=== PATIENT | female | born 1985 | race Caucasian/White ===

== ENCOUNTER 2017-08-17 19:49 | Emergency (ER) | payer OTHER ==
--- NOTE | 2017-08-17 20:33 | UC ---
Skin Complaint HPI - HPI Summary HPI Summary: 32 YEAR OLD FEMALE PRESENTS WITH INSECT BITE ON HER RIGHT BREAST. 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 Hx Last Menstrual Period: 09/09/14 Onset/Duration: Sudden Onset Onset Severity: Moderate Current Severity: Moderate Pain Scale Used: 0-10 Numeric - 4 - Allergy/Home Medications Allergies/Adverse Reactions: Allergies Allergy/AdvReac Type Severity Reaction Status Date / Time ENVIRONMENTAL/SEASONAL Allergy WATERY EYES Uncoded 08/17/17 20:36 HAYFEVER Home Medications: Home Medications Baclofen TAB* [Lioresal TAB*] 10 mg PO TID PRN 08/17/17 [History Confirmed 08/17] Omeprazole CAP* [Prilosec CAP* 20 MG] 40 mg PO DAILY 08/17/17 [History Confirmed 08/17/17] cloNIDine TAB* [Catapres 0.1 MG TAB*] 0.5 mg PO BID 08/17/17 [History Confirmed 08/17/17] Review of Systems Constitutional: Negative Skin: Other - INSECT BITE ON RIGHT BREAST Eyes: Negative ENT: Negative Respiratory: Negative Cardiovascular: Negative Gastrointestinal: Negative Genitourinary: Negative Motor: Negative Neurovascular: Negative Musculoskeletal: Negative Neurological: Negative Psychological: Negative All Other Systems Reviewed And Are Negative: Yes PMH/Surg Hx/FS Hx/Imm Hx - Surgical History Surgical History: Yes Surgery Procedure, Year, and Place: 1998, 1999, 2013 LEFT KNEE SURGERY X 3, [facility]. 2012 RIGHT EYE SURGERY FOR FRACTURED ORBITAL BONE, [facility] - Social History Alcohol Use: None Substance Use Type: None Smoking Status (MU): Heavy Every Day Tobacco Smoker Type: Cigarettes Amount Used/How Often: 1/2 PPD Length of Time of Smoking/Using Tobacco: 12 YEARS Have You Smoked in the Last Year: Yes Physical Exam Triage Information Reviewed: Yes Vital Signs Reviewed: Yes Eye Exam: Normal ENT Exam: Normal Dental Exam: Normal Neck exam: Normal Neck: Positive: 1 Respiratory Exam: Normal Cardiovascular Exam: Normal Abdominal Exam: Normal Musculoskeletal Exam: Normal Neurological Exam: Normal Psychological Exam: Normal Skin: Positive: Other - INSECT BITE RIGHT BREAST Course/Dx - Diagnoses Provider Diagnoses: INSECT BITE RIGHT BREAST Discharge - Discharge Plan Condition: Stable Disposition: HOME Prescriptions: Cephalexin CAP* [Keflex CAP*] 500 mg PO TID #30 cap Mupirocin 2% OINT* [Bactroban 2 % Oint*] 1 applic TOPICAL BID #1 tube Patient Education Materials: Abscess (ED) Referrals: ADAM Krishnamurthy [Primary Care Provider] - Adryan Sandoval PA-C [Physician [facility]] -
[2017-08-17 20:35] VITALS: BP 117/64
== END 2017-08-17 20:47 | disposition home or self-care (01) ==
LOC: UCCORT 19:49
DX: S20.161A Insect bite (nonvenomous) of breast, right breast, initial encounter (principal); W57.XXXA Bitten or stung by nonvenomous insect and other nonvenomous arthropods, initial encounter; Y93.9 Activity, unspecified; Y92.9 Unspecified place or not applicable; F17.210 Nicotine dependence, cigarettes, uncomplicated
CPT/HCPCS: 99212; G0463

== ENCOUNTER 2017-10-06 17:56 | Emergency (ER) | payer OTHER ==
[2017-10-06 18:53] VITALS: BP 120/63
--- NOTE | 2017-10-06 19:08 | UC ---
Ear Complaint HPI - HPI Summary HPI Summary: pt c/o right ear pain, sinus congestion and pain; generalized malaise. Pt is 4 months post , had gall bladder 1 week ago. - History of Current Complaint Chief Complaint: UCEar Stated Complaint: EAR PAIN,CHILLS Time Seen by Provider: 10/06/17 18:45 Hx Obtained From: Patient Hx Last Menstrual Period: unknown, depo ?: No Onset/Duration: Sudden Onset, Lasting Days, Still Present Severity Initially: Mild Severity Currently: Mild Associated Signs/Symptoms: Positive: URI Symptoms - Allergies/Home Medications Allergies/Adverse Reactions: Allergies Allergy/AdvReac Type Severity Reaction Status Date / Time Adhesive Tape Allergy Rash Verified 10/06/17 18:53 ENVIRONMENTAL/SEASONAL Allergy WATERY EYES Uncoded 08/17/17 20:36 HAYFEVER Home Medications: Home Medications Docosahexaenoic Acid [ Dha] 200 mg PO DAILY 10/06/17 [History Confirmed 10/06/17] Loratadine [Claritin 10 MG CAP] 10 mg PO DAILY 10/06/17 [History Confirmed 10/06] PMH/Surg Hx/FS Hx/Imm Hx Previously Healthy: Yes GI/ History: Gall Bladder Disease - Surgical History Surgical History: Yes Surgery Procedure, Year, and Place: 1998, 1999, 2013 LEFT KNEE SURGERY X 3, [facility]. 2011 RIGHT EYE SURGERY FOR FRACTURED ORBITAL BONE, [facility]. Gall Bladder removal 10/09 - Family History Known Family History: Positive: Cardiac Disease - Social History Occupation: Employed Full-time Lives: With Family Alcohol Use: None Substance Use Type: None Smoking Status (MU): Heavy Every Day Tobacco Smoker Type: Cigarettes Amount Used/How Often: 1/2 PPD Length of Time of Smoking/Using Tobacco: 12 YEARS Have You Smoked in the Last Year: Yes - Immunization History Most Recent Influenza Vaccination: 07/2017 Vaccination Up to Date: Yes Review of Systems Constitutional: Fatigue Skin: Negative Eyes: Negative ENT: Ear Ache, Sinus Congestion, Sinus Pain/Tenderness Respiratory: Cough Cardiovascular: Negative Gastrointestinal: Negative Genitourinary: Negative Motor: Negative Neurovascular: Negative Musculoskeletal: Negative Neurological: Negative Psychological: Negative Is Patient Immunocompromised?: No All Other Systems Reviewed And Are Negative: Yes Physical Exam Triage Information Reviewed: Yes Appearance: Ill-Appearing Vital Signs: Initial Vital Signs Temp 97.7 F 10/06/17 18:49 Pulse 72 10/06/17 18:49 Resp 16 10/06/17 18:49 BP 120/63 10/06/17 18:49 Pulse Ox 100 10/06/17 18:49 Vital Signs Reviewed: Yes Eye Exam: Normal ENT Exam: Other ENT: Positive: Nasal congestion, Sinus tenderness Dental Exam: Normal Neck exam: Normal Respiratory Exam: Normal Cardiovascular Exam: Normal Abdominal Exam: Normal Musculoskeletal Exam: Normal Neurological Exam: Normal Psychological Exam: Normal Skin Exam: Normal Ear Complaint Course/Dx - Differential Dx/Diagnosis Differential Diagnosis/HQI/PQRI: Otitis Media, URI Provider Diagnoses: sinusitis Discharge - Discharge Plan Condition: Stable Disposition: HOME Prescriptions: Amoxicillin PO (*) [Amoxicillin 875 MG (*)] 875 mg PO BID #20 tab Patient Education Materials: Sinusitis (ED), Earache (ED) Referrals: ADAM Krishnamurthy [Primary Care Provider] - If Needed
== END 2017-10-06 19:17 | disposition home or self-care (01) ==
LOC: UCCORT 17:56
DX: J32.9 Chronic sinusitis, unspecified (principal); H92.01 Otalgia, right ear; R53.81 Other malaise; Z90.49 Acquired absence of other specified parts of digestive tract; F17.210 Nicotine dependence, cigarettes, uncomplicated
CPT/HCPCS: 99212; G0463

== ENCOUNTER 2018-03-30 15:24 | Emergency (ER) | payer OTHER ==
--- NOTE | 2018-03-30 15:34 | UC ---
Lower Extremity/Ankle HPI - HPI Summary HPI Summary: 33 yo female presents with left ankle pain s/p injury yesterday. She tells me that she was walking downtown and texting at the same time. Did not notice an uneven part in the sidewalk and inverted her left ankle. Linn a loud pop. Had immediate pain followed by swelling. She underwent ORIF on this ankle 2 years ago for a similar injury. Denies numbness or tingling. - History of Current Complaint Stated Complaint: LFT ANKLE INJURY Time Seen by Provider: 03/30/18 15:34 Hx Obtained From: Patient Hx Last Menstrual Period: unknown, depo Onset/Duration: Sudden Onset Severity Initially: Severe Severity Currently: Severe Pain Intensity: 10 Pain Scale Used: 0-10 Numeric Aggravating Factor(s): Standing, Ambulation Alleviating Factor(s): Rest Able to Bear Weight: Yes - Allergies/Home Medications Allergies/Adverse Reactions: Allergies Allergy/AdvReac Type Severity Reaction Status Date / Time Adhesive Tape Allergy Rash Verified 10/06/17 18:53 ENVIRONMENTAL/SEASONAL Allergy WATERY EYES Uncoded 08/17/17 20:36 HAYFEVER Home Medications: Home Medications Acetaminophen [Tylenol Extra Strength] 1,000 mg PO DAILY 03/30/18 [History Confirmed 03/30/18] Baclofen TAB* [Lioresal TAB*] 20 mg PO TID 03/30/18 [History Confirmed 03/30/18 ] Gabapentin CAP(*) [Neurontin 400 mg CAP(*)] 800 mg PO BID 03/30/18 [History Confirmed 03/30/18] QUEtiapine TAB* [Seroquel 100 MG *] 50 mg PO DAILY 03/30/18 [History Confirmed 03/30/18] Quetiapine Fumarate [Seroquel 200 MG] 200 mg PO BEDTIME 03/30/18 [History Confirmed 03/30/18] hydrOXYzine HCL TAB* [Atarax 10 MG TAB*] 10 mg PO BEDTIME 03/30/18 [History Confirmed 03/30/18] PMH/Surg Hx/FS Hx/Imm Hx Cardiovascular History: Hypertension Respiratory History: COPD, Asthma GI/ History: Gastroesophageal Reflux - Surgical History Surgical History: Yes Surgery Procedure, Year, and Place: 1998, 1999, 2013 LEFT KNEE SURGERY X 3, [facility]. 2011 RIGHT EYE SURGERY FOR FRACTURED ORBITAL BONE, [facility]. Gall Bladder removal 10/09,ankle - Family History Known Family History: Positive: Cardiac Disease - Social History Lives: With Family Alcohol Use: None Substance Use Type: None Smoking Status (MU): Heavy Every Day Tobacco Smoker Type: Cigarettes Amount Used/How Often: 1/2 PPD Length of Time of Smoking/Using Tobacco: 12 YEARS Have You Smoked in the Last Year: Yes - Immunization History Most Recent Influenza Vaccination: 07/2017 Vaccination Up to Date: Yes Review of Systems Constitutional: Negative Skin: Negative Respiratory: Negative Cardiovascular: Negative Neurovascular: Negative Musculoskeletal: Edema - Left ankle, Other: - Left ankle pain Neurological: Negative Psychological: Negative All Other Systems Reviewed And Are Negative: Yes Physical Exam - Summary Physical Exam Summary: GENERAL: NAD. WDWN. No pain distress. SKIN: No rashes, sores, lesions, or open wounds. NECK: Supple. Nontender. No lymphadenopathy. CHEST: No accessory muscle use. Breathing comfortably and in no distress. CV: RRR. Without m/r/g. Pulses intact PT and DP. Brisk cap refill. MSK: Left ankle: Severe TTP about anterolateral malleolus. Moderate to severe edema about lateral malleolus. Limited ROM due to pain, but able to dorsiflex and plantarflex. NEURO: Alert. Sensations intact and symmetric B/L LEs PSYCH: Age appropriate behavior. Triage Information Reviewed: Yes Lower Extremity Course/Dx - Course Course Of Treatment: Ankle XR: IMPRESSION: Negative for fracture. Consider potential lateral supporting ligament injury given magnitude of soft tissue swelling and talocrural joint effusion. Gel ankle spint and CARTER wrap. She refused crutches. She is also asking for percocet for the pain as she has taken this in the past with good relief. Reference #: [id number] istop ok. - Differential Dx/Diagnosis Provider Diagnoses: Left ankle sprain Discharge - Sign-Out/Discharge Documenting (check all that apply): Discharge/Admit/Transfer - Discharge Plan Condition: Stable Disposition: HOME Prescriptions: oxyCODONE/Acetamin 5/325 MG* [Percocet 5/325 TAB*] 1 tab PO Q8H PRN #9 tab MDD 3 PRN Reason: Pain Patient Education Materials: Ankle Sprain (ED) Referrals: ADAM Krishnamurthy [Primary Care Provider] - Richard Roberts MD [Medical Doctor] - As Soon As Possible Additional Instructions: If you develop a fever, shortness of breath, chest pain, new or worsening symptoms - please call your PCP or go to the ED. 1) Rest, Ice, and Elevate your ankle as much as possible 2) Use the CARTER wrap and gel splint for added support and stability 3) Please call Dr. Roberts at the number below to schedule a follow up appointment - he is the surgeon that did your previous ankle surgery - Billing Disposition and Condition Condition: STABLE Disposition: HOME
--- OUTSIDE RECORDS SUMMARY | 2018-03-30 15:34 | XMS REPORT ---
:1985 External Reference #:[id number] Author Organization [facility] Address [address] [address] Phone [phone] Care Team Providers Name Role Phone Jhoana Amato MD Primary Care Physician Unavailable Payers Type Date Identification Numbers Payment Provider Subscriber Commercial Effective: Policy Number: [id number] Andrew Hussein Perez 2009 Group Number: [id number] [address] PayID: [id number] [place] [address] Problems Description No Information Family History Date Family Member(s) Problem(s) Comments General Heart Disease General Diabetes Social History Type Date Description Comments Lives With assisted house Occupation Unemployed ETOH Use Denies alcohol use Smoking Heavy tobacco smoker (more than 10 cigarettes/day) Allergies, Adverse Reactions, Alerts Date Description Reaction Status Severity Comments 12/04/2015 NKDA active Medications Medication Date Status Form Strength Qnty SIG Indications Ordering Provider Proair HFA / Active Aerosol 108(90Bas Olarewaju 0000 e) , mcg/Act MD Veena Trazodone HCL / Active Tablets 300mg 1 po at Olarewaju 0000 hs Veena MD Loratadine / Active Tablets 10mg 30tab 1 by Olarewaju 0000 s mouth , every day MD Veena Gabapentin / Active Tablets 600mg 1 po tid Olarewaju 0000 Veena MD Advair Diskus / Active Aerosol 100-50mcg 60uni as Olarewaju 0000 /Dose ts directed Veena MD Seroquel / Active Tablets 250mg 1 by Unknown 0000 mouth every night at bedtime Omeprazole / Active Capsules DR 40mg 1 by Unknown 0000 mouth every day Tylenol Extra / Active Tablets 500mg 2 by Unknown Strength 0000 mouth as needed Cyclobenzaprine / Active Tablets 10mg 1 tablet Unknown HCL 0000 by mouth q8 hours as needed muscle spasms Oxycodone-Acetami 01/08/ Hx Tablets 5-325mg 30tab S93.402D Stashelley bee 2015 Terrence Preet, 02/21/ 2015 Oxycodone HCL 01/08/ Hx Tablets 5mg 40tab take one G57.92 Richard 2015 four Armando, 02/21/ times a M.D. 2015 day as needed Colace 01/01/ Hx Capsules 100mg 30cap take 1 Richard 2015 capsule Armando, 03/09/ by mouth M.D. 2017 two times daily as needed - maximum daily dose of 2 per day Sumatriptan / Hx Tablets 100mg Olarewaju Succinate 0000 - , , 2017 Tab-A-Chase / Hx Tablets Olarewaju 0000 - , , 2017 Topiramate / Hx Tablets 25mg Olarewaju 0000 - , , 2017 Oxycodone-Acetami / Hx Tablets 5-325mg Olareolga lidia nophen 0000 - , , 2015 Fluticasone / Hx Suspension 50mcg/Act Olarewaju Propionate 0000 - , , 2017 Vital Signs Date Vital Result Comment 03/22/2018 Height 65 inches 5'5" Weight 210.00 lb Heart Rate 87 /min BP Systolic Sitting 126 mmHg BP Diastolic Sitting 68 mmHg Respiratory Rate 16 /min Pain Level 8 tylenol O2 % BldC Oximetry 98 % Ra BMI (Body Mass Index) 34.9 kg/m2 02/26/2016 Weight 205.00 lb Heart Rate 78 /min BP Systolic Sitting 124 mmHg BP Diastolic Sitting 82 mmHg 01/08/2016 Weight 205.00 lb Heart Rate 80 /min BP Systolic Sitting 128 mmHg BP Diastolic Sitting 88 mmHg 12/18/2015 Heart Rate 80 /min BP Systolic Sitting 98 mmHg BP Diastolic Sitting 68 mmHg 12/04/2015 Height 65 inches 5'5" Weight 205.00 lb Heart Rate 68 /min BP Systolic Sitting 110 mmHg BP Diastolic Sitting 70 mmHg BMI (Body Mass Index) 34.1 kg/m2 Results Test Date Test Result H/L Range Note Laboratory test 12/31/2015 Surgical Pathology SEE RESULT BELOW 1 finding Laboratory test 12/31/2015 (HCG) Negative Negative 2 finding Urine Laboratory test 12/30/2015 Semiten SEE RESULTS BELO 3, 4 finding <SEE NOTE> 1 SEE RESULT BELOW Name: HUSSEIN PEREZ : [address]: Richard Roberts MD Acct: [id number] Unit: [id number] AGE: 30 Location: OR Re12/31/15 SEX: F Status: REG [place] SPEC: [id number] JEFF: 12/31/15123 [facility] DR: Richard Roberts MD REQ: [id number] RECD: 12/31/15 STATUS: SOUT _ ORDERED: LEVEL III FINAL DIAGNOSIS Left talus cartilage, excision: -- Benign cartilaginous tissue. PRE-OPERATIVE DIAGNOSIS Sprain of unspecified ligament of left ankle. GROSS DESCRIPTION The specimen is received in formalin labeled, Left Talus Cartilage, and consists of two oconnor-white irregular rubbery soft tissue fragments measuring 0.8 x 0.5 x 0.2 cm and 1.0 cm by up to 0.6 x 0.2 cm. The specimen is serially sectioned and entirely submitted in one cassette. Signed (signature on file) Rachel Zuleta MD 08/08 1243 END OF REPORT * ML=Testing performed at Main Lab DEPARTMENT OF PATHOLOGY, [address] [place] [address] Tutu Stratton M.D. Director [facility] # [id number] 2 If is still suspected, please repeat test after 48 to 72 hours. This test detects intact HCG only and is indicated for the early detection of . 3 SPRAIN OF UNSPEFICIED LIGAMENT OF LEFT ANKLE, INIT 4 SEE RESULTS BELOW [id number] SEMITEN TRANSFUSED 12/31/15 1040 Procedures Date CPT Code Description Status 01/08/2016 80754 Short Leg Cast Completed 12/31/2015 38027 Decompress Nerve Unspec Completed 12/31/2015 52115 Partial Excision Bone Talus/Calcaneus Completed 12/31/2015 93233 Repair Collateral Ligament Ankle, Secondary Completed Encounters Type Date Location Provider CPT E/M Dx Office Visit 03/22/2018 [facility] [place] Mel[place] [address] M19.011 9:15a [facility] Office Visit 12/18/2015 [facility] Richard Roberts 60836 S93.402D 10:40a [facility] [place] Office Visit 12/04/2015 [facility] Richard Roberts 35870 S93.402A 10:00a [facility] 02/06/2010 2:20p [facility] Storm Harman, [address] [address] [facility] 03/22/2018 - ALESIA Guan19.011 Primary osteoarthritis, right shoulderNew Xrays:MRI Shoulder Right W/OFollow up:Follow up: yaseen for distal clavicle resection surgery after mri
[2018-03-30 15:36] VITALS: BP 118/70
--- NOTE | 2018-03-30 16:12 | RAD ---
Indication: LEFT ankle pain following injury March 29, 2018. Lateral pain and soft tissue swelling. Comparison: No relevant prior exams available on the [facility] PACS for comparison. Technique: AP, mortise, and lateral views LEFT ankle. Report: Significant soft tissue swelling over the lateral malleolus. Talocrural joint effusion. Negative for gross component failure or evidence for loosening with regard to the cortical plate and fixation screws at the lateral malleolus. No conspicuous acute or chronic fracture evident. Normal articular alignment. IMPRESSION: Negative for fracture. Consider potential lateral supporting ligament injury given magnitude of soft tissue swelling and talocrural joint effusion.
== END 2018-03-30 16:31 | disposition home or self-care (01) ==
LOC: UCCORT 15:24
DX: S93.402A Sprain of unspecified ligament of left ankle, initial encounter (principal); W18.49XA Other slipping, tripping and stumbling without falling, initial encounter; Y93.01 Activity, walking, marching and hiking; Y92.480 Sidewalk as the place of occurrence of the external cause; F17.210 Nicotine dependence, cigarettes, uncomplicated; Z87.81 Personal history of (healed) traumatic fracture; Z96.7 Presence of other bone and tendon implants
CPT/HCPCS: 99213; G0463

== ENCOUNTER 2018-05-03 10:47 | Day surgery (SDC) | payer OTHER ==
--- NOTE | 2018-04-20 08:49 | HP ---
HISTORY AND PHYSICAL: DATE OF SURGERY: 05/03/18 DATE OF OFFICE VISIT: 04/08/18 ATTENDING SURGEON: Sondra Borden MD.* (DICTATED BY WALE MEDINA) PROCEDURE: Right shoulder arthroscopic excision distal clavicle, decompression , and debridement. CHIEF COMPLAINT: Right shoulder. HISTORY OF PRESENT ILLNESS: Brianna is a 33-year-old female who presents to clinic for right shoulder pain. She is right hand dominant. She is disabled, but has a 10-month old baby. She has had shoulder pain for years, over the last seven to eight months, she describes an anterolateral ache that is constant. She rates it as 8/10. It radiates into the neck. She has pain reaching across her body and with behind the back and above the head motion. She has had trigger point injections and physical therapy, which have not helped. She has not had a cortisone injection. She is not interested in cortisone injection. She takes gabapentin, baclofen for pain. She has never had surgery. She is in a boot and saw Dr. Roberts because she sprained her ankle about 2 weeks ago. She smokes 1 pack per day. She is not diabetic. She denies numbness, tingling, fevers, chills, chest pain or shortness of breath otherwise. PAST MEDICAL HISTORY: 1. Asthma. 2. Anxiety. 3. Depression. 4. Headache. 5. Head trauma. 6. Bipolar. 7. PTSD. 8. Borderline personality disorder. 9. ADHD. 10. Herniated lumbar disk. PAST SURGICAL HISTORY: 1. Left knee x3. 2. Eye surgery. 3. Left ankle surgery. 4. Cholecystectomy. The patient denies prior complications with anesthesia. MEDICATIONS: 1. [place] 5/325 one by mouth every 6 hours as needed for pain. 2. ProAir HFA 100/90 mcg/ACT as needed. 3. Trazodone 300 mg 1 by mouth at night. 4. Loratadine 10 mg 1 by mouth daily. 5. Gabapentin 800 mg 1 by mouth 3 times a day. 6. Advair Diskus 100/50 mcg per dose as directed. 7. Seroquel 250 mg 1 by mouth every night at bedtime. 8. Omeprazole 40 mg 1 by mouth every day. 9. Tylenol extra strength 500 mg 2 tabs by mouth as needed. 10. Cyclobenzaprine 10 mg 1 every 8 hours as needed for muscle spasms. 11. Baclofen 10 mg 1 tab 3 times a day. 12. Duloxetine 30 mg 1 by mouth twice a day. ALLERGIES: No known drug allergies. FAMILY HISTORY: Positive for heart disease, diabetes, osteoarthritis, mental health disorders and MIs. The patient denies family history of DVT or PE. SOCIAL HISTORY: She is unemployed. She smokes 1 pack per day. She denies alcohol use. She is right hand dominant. REVIEW OF SYSTEMS: A 14-point review of systems was reviewed with patient. Positive for current complaint. Otherwise negative. Denies numbness, tingling , fever, chills, chest pain, shortness of breath. Denies history of DVT or PE. Denies history of MRSA. PHYSICAL EXAMINATION GENERAL: A 33-year-old, well-developed, well-nourished female in no acute distress. Alert and oriented x3. Appropriate mood and affect. Appropriate balance and coordination of the upper extremities. VITAL SIGNS: Height 65, weight 213, pulse 84, blood pressure 98/66, respiratory rate 16, temperature 96.9, BMI 35.4. HEENT: Normocephalic, atraumatic, PERRLA. Throat clear. NECK: Supple. PULMONARY: Clear to auscultation bilaterally. No wheezing, rhonchi, or rales. CARDIO: Regular rate and rhythm, S1, S2. No murmurs, gallops, or rubs. No edema. ABDOMEN: Positive bowel sounds, soft, nontender. MUSCULOSKELETAL: Right upper extremity: Skin is intact. No warmth or erythema , tenderness to palpation of the AC joint in the proximal biceps tendon. Forward flexion to 120, passively to 140 with pain. Abduction to 90. External rotation to 65, internal rotation to lumbar spine. She has pain with cross body. +4/5 strength to rotator cuff testing with pain, +2 radial pulse. Positive Neil's, Speed's, Marie-Eduardo, Somerset's. +2 radial pulse. Sensation intact to light touch distally. Left upper extremity: Skin is intact. No warmth or erythema. Nontender to palpation. Full pain free range of motion. Neurovascularly intact. STUDIES: X-rays and MRI of the right shoulder reveals severe AC joint arthritis, supraspinatus tendinosis with subacromial impingement. The rotator cuff is intact. There is no fluid in the bicipital groove. Impression: Right shoulder impingement, AC joint arthritis and biceps tendonitis. ASSESSMENT AND PLAN: Brianna is a 33-year-old female who presents to clinic for right shoulder pain for several years due to acromioclavicular joint arthritis, biceps tendonitis and impingement. Conservative treatment versus surgical treatment were discussed with the patient. She has failed physical therapy, is not interested in injection. She would like to undergo surgical treatment. Risk of surgery to include injury to blood vessels, nerve, surrounding structures, bleeding, infection, risk of anesthesia, stiffness, persistent pain , and risk of DVT and PE were discussed with the patient. She would still like to undergo surgery. She was given a script for Tramadol for pain to get her through until she is able to have surgery. She will require PCP clearance but she is scheduled to undergo a right total arthroscopic excision, distal clavicle decompression and debridement and possible biceps tenotomy with Dr. Borden on 05/03/18. She will followup 10 to 14 days postop. Oxycodone will be used for postop pain management. WALE MEDINA [id number]/[facility] #: [id number] MTDAmanda
[~2018-05-03 10:47] MED LIST: Buffered Lidocaine 0.9% SYRIN* 5 ML/SYR SYRINGE INTRADERM ONE; Famotidine IV* 10 MG/ML 2 ML (20 mg) IV ONE
[2018-05-03] MEDS ORDERED: ceFAZolin 2 GM PREMIX (*) 2 GM/50 ML BAG IVPB ONE (11:06)
[2018-05-03] MEDS ORDERED: Famotidine IV* 10 MG/ML 2 ML (20 mg) ONE (11:06)
[2018-05-03] MEDS ORDERED: fentaNYL* 50 MCG/ML 2 ML VIAL (100 MCG VIAL) ONE ×2 (11:10→12:40)
[2018-05-03] MEDS ORDERED: Midazolam* 1 MG/ML 5 ML VIAL (5 MG) ONE (11:10)
[2018-05-03] MEDS ORDERED: HYDROmorphone INJ* 1 MG/ML CARPUJECT SYRINGE IV PRN (11:37)
[2018-05-03] MEDS ORDERED: Ondansetron INJ* 2 MG/ML VIAL IV PRN (11:37)
[2018-05-03] MEDS ORDERED: oxyCODONE/Acetamin 5/325 MG* TAB PO PRN (11:37)
[2018-05-03] MEDS ORDERED: Naloxone* 0.4 MG/ML 1 ML VIAL IV PRN (11:37)
[2018-05-03] MEDS ORDERED: ROPIVACAINE 5 MG/ML 30 ML BTL (0.5%) ONE (12:08)
[2018-05-03] MEDS ORDERED: Lidocaine 2% PF* 10 ML AMP ONE (12:09)
[2018-05-03] MEDS ORDERED: KETAMINE HCL* 50 MG/ML 10 ML VIAL ONE (12:37)
[2018-05-03] MEDS ORDERED: Dexamethasone IV* 4 MG/ML 1 ML (4 MG) ONE (12:52)
[2018-05-03] MEDS ORDERED: Propofol* 10 MG/ML 20 ML BTL IV PUSH ONE (12:52)
[2018-05-03] MEDS ORDERED: Lidocaine 2% MPF* 2 ML VIAL ONE (12:52)
[2018-05-03] MEDS ORDERED: Ketorolac INJ* 30 MG/ML 1 ML VIAL ONE (12:52)
[2018-05-03] MEDS ORDERED: DiMENhydriNATE IV* 50 MG/ML VIAL ONE (12:52)
[2018-05-03] MEDS ORDERED: methylPREDNISolone ACETATE 80* 80 MG/ML 1 ML VIAL ONE (13:00)
[2018-05-03 14:12] VITALS: BP 110/78
--- NOTE | 2018-05-04 07:50 | OP ---
DATE OF OPERATION: 05/03/18 [facility] DATE OF : 81 SURGEON: Sondra Borden MD CAUSTIC STRENGTH INSPECTOR: WALE Ruvalcaba. An front desk assistant was needed for the entirety of the case to help with positioning and retraction, and was utilized throughout all portions of the case. ANESTHESIOLOGIST: Dr. Calvillo ANESTHESIA: General, interscalene block. PRE-OP DIAGNOSES: Right shoulder impingement with acromioclavicular joint arthritis and a SLAP tear. POST-OP DIAGNOSES: Right shoulder SLAP type 2 tear, partial thickness articular - sided tearing of the supraspinatus tendon with unstable flaps, subacromial impingement with a downward sloping acromion, and acromioclavicular joint arthritis. OPERATIVE PROCEDURE: 1. Right shoulder arthroscopy with extensive glenohumeral debridement, debridement of the supraspinatus tendon, biceps tenotomy, and debridement of the anterior, posterior, and superior labrum. 2. Subacromial decompression with acromioplasty. 3. Distal clavicle excision arthroscopic. 4. Subacromial injection 80 mg Depo-Medrol. COMPLICATIONS: None. ESTIMATED BLOOD LOSS: Minimal. INDICATION: Brianna Dsouza is a 33-year-old female who presents with right shoulder pain about the AC joint and bicipital groove with impingement. Risks and benefits of surgery were discussed at length and included but are not limited to bleeding, infection; damage to nerves, vessels, surrounding structures; wound nonhealing, persistent pain, need for further surgery, scaring , stiffness, incomplete relief of symptoms, risk of anesthesia. She has failed conservative treatment and elected to proceed with surgical treatment. Risks and benefits of surgery were discussed as above. DESCRIPTION OF PROCEDURE: The patient was greeted in the preoperative area by the attending surgeon. The correct extremity was marked and consent was confirmed. The patient then underwent interscalene nerve block by the anesthesiologist, after which she was brought back to the operating suite. She was placed in supine position on the operating table. She then underwent general anesthesia with endotracheal intubation. She was properly positioned in the left lateral decubitus position where all bony prominences were padded. She was secured with a pegboard and axillary roll was placed. The right shoulder was then prepped and draped in the usual sterile fashion beginning with chlorhexidine soap, scrub, and alcohol wipe and a final prep with ChloraPrep. After appropriate surgical pause indicating side, site, procedure, and administration of antibiotics, the standard postero-lateral portal was made sharply with #11 blade. The scope was introduced into the joint, joint was examined. There were grade 0 to 1 changes in the glenohumeral joint. The anterior, posterior, and superior labrum had an unstable type 2 SLAP tear. The undersurface of the supraspinatus tendon had partial thickness tearing on the undersurface flaps. The inferior recess was intact. An anterior portal was made in an outside- in fashion. Shaver was used to debride back the anterior, posterior, and superior labrum as well as the undersurface of the supraspinatus. There was some mild fraying of the subscapularis and biceps valentín as well. The biceps was then tenotomized, the inferior recess was intact. Once the intraarticular portion was completed, attention was directed to the subacromial space. The scope was repositioned in the subacromial space. Lateral portal was made in an outside-in fashion. Shaver was used to debride back the abundant bursa that was present. There was a large downward-sloping in acromion, which was evident and skeletonized using electrocautery device. The 4-0 oval candace was then used to do an acromioplasty. There is also a large spur about the AC joint. Once this was removed from the acromion, the AC joint was identified. All fluid and debris were removed from the acromioplasty. The candace was positioned anteriorly and approximately 8-mm distal clavicle was removed under direct arthroscopic visualization. The clavicle was then mobilized to make sure that the areas of impingement have been removed. Final images were obtained. The wounds were copiously irrigated with sterile saline and all loose debris was removed. An 18-gauge needle was placed under arthroscopic visualization. The wounds were then copiously irrigated with sterile saline. The portals were closed with 3-0 nylon. The subacromial space was injected with 80 mg Depo-Medrol. Sterile dressings were applied; a Cryo/ Cuff and a regular sling were applied. She was awoken from anesthesia and returned to PACU in stable condition. POSTOPERATIVE PLAN: She will be nonweightbearing with range of motion as tolerated. DVT prophylaxis was considered, but deferred due to no previous or family history. I will see the patient back in 10 to 14 days. [id number]/[facility] #: [id number] [facility]
== END 2018-05-03 14:13 | disposition home or self-care (01) ==
LOC: OREAST 10:47
PROVIDERS: ATTEND Orthopaedic Surgery
DX: M75.41 Impingement syndrome of right shoulder (principal); M19.011 Primary osteoarthritis, right shoulder; M24.211 Disorder of ligament, right shoulder; M75.101 Unspecified rotator cuff tear or rupture of right shoulder, not specified as traumatic; G89.18 Other acute postprocedural pain; J45.909 Unspecified asthma, uncomplicated; F41.8 Other specified anxiety disorders; F31.9 Bipolar disorder, unspecified; F43.10 Post-traumatic stress disorder, unspecified; F90.9 Attention-deficit hyperactivity disorder, unspecified type; F60.3 Borderline personality disorder; Z72.0 Tobacco use; Z79.899 Other long term (current) drug therapy
CPT/HCPCS: 81025; J0690; J1040; J1100; J1240; J1885; J2001; J2250; J2704; J2795; J3010

== ENCOUNTER 2018-07-15 12:37 | Emergency (ER) | payer OTHER ==
[2018-07-15 12:55] VITALS: BP 109/72
--- NOTE | 2018-07-15 13:34 | UC ---
Eye Complaint HPI - HPI Summary HPI Summary: 33 year old female with eye concern. THURSDAY MORNING FELL INTO CEMENT BLOCK, HAS SOME BRUISING AND SWELLING AROUND RIGHT ORBITAL, HAS HAD A RIGHT ORBITAL RECONSTRUCTION PRIOR AND IS CONCERNED SHE MAY HAVE RE-INJURED IT States the fall was hard and she wants to ensure no acute concerns for fracture NO CHANGES IN VISION [ End ] - History of Current Complaint Chief Complaint: UCTrauma Stated Complaint: RIGHT SIDED FACIAL INJURY Time Seen by Provider: 07/15/18 12:57 Hx Obtained From: Patient Hx Last Menstrual Period: DEPO Onset/Duration: Sudden Onset Pain Intensity: 7 Location of Injury: Conjunctiva, Globe, Eye Lid (lower) - Risk Factors Globe Rupture Risk Factors: Recent Trauma Acute Glaucoma Risk Factors: Eye Trauma - Allergies/Home Medications Allergies/Adverse Reactions: Allergies Allergy/AdvReac Type Severity Reaction Status Date / Time Adhesive Tape Allergy Rash Verified 05/03/18 11:36 latex Allergy Rash Verified 05/03/18 11:36 PMH/Surg Hx/FS Hx/Imm Hx Previously Healthy: Yes Psychological History: Anxiety, Depression - Surgical History Surgical History: Yes Surgery Procedure, Year, and Place: left knee arthroscopies x3, 1998, 1999, 2013 - [facility]. right eye orbital fx repair 2011 - [facility]. cholecystectomy 2016 - [facility]. [place] [facility] [place] - Family History Known Family History: Positive: Cardiac Disease - Social History Lives: With Family Alcohol Use: reports been sober 3 yrs Substance Use Type: None Smoking Status (MU): Heavy Every Day Tobacco Smoker Type: Cigarettes Amount Used/How Often: 1/2 - 1 PPD for 18 years Length of Time of Smoking/Using Tobacco: 12 YEARS Have You Smoked in the Last Year: Yes - Immunization History Most Recent Influenza Vaccination: 07/2017 Vaccination Up to Date: Yes Review of Systems Skin: Bruising Is Patient Immunocompromised?: No All Other Systems Reviewed And Are Negative: Yes Physical Exam Triage Information Reviewed: Yes Appearance: Well-Appearing, No Pain Distress, Well-Nourished Vital Signs: Initial Vital Signs Temp 97.4 F 07/15/18 12:46 Pulse 81 07/15/18 12:46 Resp 17 07/15/18 12:46 BP 109/72 07/15/18 12:46 Pulse Ox 97 07/15/18 12:46 Vital Signs Reviewed: Yes Eye Exam: Normal Eyes: Positive: Conjunctiva Clear, Other: - right infraorbital ecchymosis and tenderness to palpation. ENT Exam: Normal ENT: Positive: Normal ENT inspection, Hearing grossly normal, TMs normal Neck exam: Normal Respiratory Exam: Normal Cardiovascular Exam: Normal Musculoskeletal Exam: Normal Neurological Exam: Normal Psychological Exam: Normal Skin: Positive: Other - bruising under right eye Eye Complaint Course/Dx - Course Course Of Treatment: CT done and reveals no acute concerns - Differential Dx/Diagnosis Provider Diagnoses: facial contusion right side of face Discharge - Sign-Out/Discharge Documenting (check all that apply): Patient Departure All imaging exams completed and their final reports reviewed: Yes - Discharge Plan Condition: Good Disposition: HOME Patient Education Materials: Facial Contusion (ED) Referrals: Brenda Powell [Primary Care Provider] - 4 Days Additional Instructions: Your CT scan was negative for a fracture. Feel better ! - Billing Disposition and Condition Condition: GOOD Disposition: Home
--- NOTE | 2018-07-15 13:54 | RAD ---
HISTORY: fall , h/o orbital fracture COMPARISONS: None TECHNIQUE: Multiple contiguous axial CT scans were obtained of the orbits without intravenous contrast, with coronal and sagittal multiplanar reformations. FINDINGS: BONES: There is no displaced fracture or dislocation. The orbital rim is intact. The zygomatic arch is intact. The pterygoid plates are intact. ORBITS: The globes are round. The optic nerves are symmetric. The extraocular musculature is normal. There is no post septal or intraconal inflammatory change. There is no retrobulbar hematoma. PARANASAL SINUSES: There is a mucous retention cyst versus polyp with mucosal thickening of the left maxillary sinus. BRAIN AND SOFT TISSUE: There is minimal premaxillary soft tissue swelling on the right. OTHER: None. IMPRESSION: NO ORBITAL FRACTURE.
== END 2018-07-15 14:06 | disposition home or self-care (01) ==
LOC: UCCORT 12:37
DX: S00.83XA Contusion of other part of head, initial encounter (principal); W19.XXXA Unspecified fall, initial encounter; Y93.9 Activity, unspecified; Y92.9 Unspecified place or not applicable; F17.210 Nicotine dependence, cigarettes, uncomplicated
CPT/HCPCS: 70480; 99211; G0463

== ENCOUNTER 2019-05-24 20:12 | Emergency (ER) | payer OTHER ==
--- OUTSIDE RECORDS SUMMARY | 2019-05-24 20:19 | XMS REPORT | Continuity of Care Document ---
:1985 External Reference #:[id number] Author Name Lonny Willingham DO, MPH Address [address] [place] [address], [address] [place] [address] Care Team Providers Name Role Phone Jhoana Amato M.D. Care Team Information Clothes Separator Unavailable Yahaira Alejo L., MD Primary Care Physician Unavailable Payers Date Identification Numbers Payment Provider Subscriber Policy Number: [id number] [facility] Brianna Dsouza PayID: [id number] [employer] Claims [employer] [address] [place] [address] Family History Date Family Member(s) Observation Comments Father due to Unknown Causes () Father 8 Mother 56 Children 3 Siblings 6 Social History Type Date Description Comments Sex Unknown Marital Status Single Lives With Male Partner Occupation Disabled Work Status Not Currently Working ETOH Use Former Alcohol Use Alcoholic Tobacco Use Start: Unknown Patient is a current smoker, smokes every day Recreational Drug Use Former Drug User Smoking Status Reviewed: 05/09/19 Patient is a current smoker, smokes every day Allergies, Adverse Reactions, Alerts Active Allergies Reaction Severity Comments Date Latex 09/16/2018 Medications Active Medications SIG Qnty Indications Ordering Provider Date Zanaflex si/2 by mouth 30tabs Lonny Willingham DO, 02/08/2019 4mg Tablets every 8-12 hours MPH Oxycodone HCL si by mouth 90tabs Lonny Willingham DO, 09/17/2018 5mg every 8 hours as MPH Tablets directed chronic pain patient Gabapentin by mouth three 90tabs Unknown 800mg times a day as Tablets directed Seroquel 2 by mouth every 120tabs Unknown 300mg day at bedtime as Tablets directed Seroquel 1 by mouth twice 30tabs Unknown 50mg Tablets a day as directed Omeprazole 1 by mouth every Unknown 40mg day Capsules DR Yarely Hoyt 1 puffs twice a Unknown day 250-50mcg/Dose Aerosol Albuterol Inhalation Unknown 90mcg/Dose Aerosol Vitamin D3 Super Unknown Strength 2000Unit Capsules Trazodone HCL 2 by mouth every 30tabs Unknown 100mg night Tablets Lakeshore Carbonate 1 by mouth twice Unknown daily 300mg Capsules History Medications Gabapentin 2 by mouth three 45caps Unknown - 11/08/2018 100mg Capsules times a day Ibuprofen as needed Unknown - 02/08/2019 800mg Tablets Propranolol HCL 1 by mouth every day Unknown - 02/08/2019 20mg Tablets as needed Baclofen by mouth four times a 60tabs Unknown - 02/08/2019 10mg Tablets day as directed Vital Signs Date Vital Result Comment 05/09/2019 10:28am BP Systolic 136 mmHg BP Diastolic 84 mmHg Heart Rate 82 /min Respiratory Rate 20 /min Height 64 inches 5'4" Weight 206.00 lb Pain Level 5 Pain at this time. Pain Level With Medicine 4 on average with meds Pain Level Without Medicine 9 without meds Pain Level After Procedure 4 BP Systolic Recheck 132 mmHg Pulse: 88 BP Diastolic Recheck 84 mmHg Pulse: 88 BMI (Body Mass Index) 35.4 kg/m2 04/05/2019 11:02am BP Systolic 128 mmHg BP Diastolic 78 mmHg Heart Rate 74 /min Respiratory Rate 20 /min Height 64 inches 5'4" Weight 206.00 lb Pain Level 4 Pain at this time. Pain Level With Medicine 3 on average with meds Pain Level Without Medicine 9 09/01 without meds BMI (Body Mass Index) 35.4 kg/m2 03/10/2019 2:51pm BP Systolic 130 mmHg BP Diastolic 84 mmHg Heart Rate 80 /min Respiratory Rate 20 /min Height 64 inches 5'4" Weight 206.00 lb Pain Level 4 Pain at this time. Pain Level With Medicine 3 on average with meds Pain Level Without Medicine 8 09/01 without meds BMI (Body Mass Index) 35.4 kg/m2 02/08/2019 2:22pm BP Systolic 148 mmHg BP Diastolic 86 mmHg Heart Rate 8 /min Respiratory Rate 20 /min Height 64 inches 5'4" Weight 203.00 lb Pain Level 8 Pain at this time. Pain Level With Medicine 7 on average with meds Pain Level Without Medicine 09/01 without meds BMI (Body Mass Index) 34.8 kg/m2 01/10/2019 3:02pm BP Systolic 122 mmHg BP Diastolic 74 mmHg Heart Rate 70 /min Respiratory Rate 20 /min Height 64 inches 5'4" Weight 203.00 lb Pain Level 5 Pain at this time. Pain Level With Medicine 4 on average with meds Pain Level Without Medicine 09/01 without meds Pain Level After Procedure 4 BP Systolic Recheck 126 mmHg Pulse: 74 BP Diastolic Recheck 78 mmHg Pulse: 74 BMI (Body Mass Index) 34.8 kg/m2 12/07/2018 2:38pm BP Systolic 130 mmHg BP Diastolic 82 mmHg Heart Rate 84 /min Respiratory Rate 20 /min Height 64 inches 5'4" Weight 203.00 lb Pain Level 6 Pain at this time. Pain Level With Medicine 5 on average with meds Pain Level Without Medicine 09/01 without meds BMI (Body Mass Index) 34.8 kg/m2 11/08/2018 2:32pm BP Systolic 144 mmHg BP Diastolic 78 mmHg Heart Rate 82 /min Respiratory Rate 20 /min Height 64 inches 5'4" Weight 203.00 lb Pain Level 6 Pain at this time. Pain Level With Medicine 5 on average with meds Pain Level Without Medicine 09/01 without meds Pain Level After Procedure 4 BP Systolic Recheck 138 mmHg Pulse: 88 BP Diastolic Recheck 82 mmHg Pulse: 88 BMI (Body Mass Index) 34.8 kg/m2 10/21/2018 3:15pm Respiratory Rate 20 /min Height 64 inches 5'4" Weight 202.00 lb Pain Level Without Medicine 10 09/01 without meds BMI (Body Mass Index) 34.7 kg/m2 09/28/2018 2:50pm BP Systolic 140 mmHg BP Diastolic 86 mmHg Heart Rate 82 /min Respiratory Rate 20 /min Height 64 inches 5'4" Weight 202.00 lb Pain Level 6 Pain at this time. Pain Level With Medicine 5 on average with meds Pain Level Without Medicine 10 09/01 without meds BMI (Body Mass Index) 34.7 kg/m2 09/16/2018 2:21pm BP Systolic 122 mmHg BP Diastolic 78 mmHg Heart Rate 74 /min Respiratory Rate 18 /min Height 64 inches 5'4" Weight 202.00 lb Pain Level 8 Pain at this time. Pain Level Without Medicine 10 09/01 without meds BMI (Body Mass Index) 34.7 kg/m2 Procedures Date Code Description Status 02/08/2019 73521 Test Autonomic Nervous System, Sudomotor Completed 02/08/2019 38003 Test Autonomic Nervous System, Cardiovagal Innervation Completed 01/10/201948699 Inject Tendon/Ligament Completed 01/10/2019 06918 Inject Tendon/Ligament Completed 01/10/2019 99546 Inject Tendon/Ligament Completed 01/10/2019 02597 Inject Tendon/Ligament Completed 01/10/201933571 Injection, Tendon Origin/Insertion Completed 01/10/201906988 Injection, Tendon Origin/Insertion Completed 01/10/201915285 Injection, Single Or Mutiple Trigger Points One Or Two Completed Muscles 01/10/2019 30851 Injection For Nerve Block, Other Peripheral Nerve Or Completed Branch 01/10/2019 83465 Brief Emotional/Behav Assessment W/ Scoring Doc Per Completed Standard Inst 01/10/2019 51428 Omt 3-4 Body Regions Completed 12/07/2018 66934 Omt 3-4 Body Regions Completed 11/08/201837003 Injection, Single Or Mutiple Trigger Points One Or Two Completed Muscles 11/08/201862892 Injection, Tendon Origin/Insertion Completed 11/08/201857299 Injection, Tendon Origin/Insertion Completed 11/08/2018 52185 Inject Tendon/Ligament Completed 11/08/2018 87613 Inject Tendon/Ligament Completed 11/08/2018 10681 Inject Tendon/Ligament Completed 11/08/2018 44435 Inject Tendon/Ligament Completed 09/16/2018 56789 Omt 1-2 Body Regions Completed Encounters Type Date Location Provider Dx Diagnosis Office Visit 04/05/2019 Main Office as Of Lonny Willingham DO G89.21 Chronic pain due 11:30a 12/24/13 MPH to trauma M54.2 Cervicalgia M54.5 Low back pain M54.17 Radiculopathy, lumbosacral region Z79.891 assisted (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 analgesic Office Visit 03/10/2019 3:00p Main Office as Lonny Willingham G89.21 Chronic pain due Of 12/24/13 DO, [facility]PH to trauma M54.2 Cervicalgia M54.5 Low back pain M54.17 Radiculopathy, lumbosacral region Z79.891 assisted (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 analgesic Office Visit 02/08/2019 2:45p Main Office as Lonny Willingham G89.21 Chronic pain due Of 12/24/13 DO, [facility] to trauma M54.2 Cervicalgia M54.5 Low back pain M54.17 Radiculopathy, lumbosacral region 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 G90.3 Multi-system degeneration of the autonomic nervous system Office Visit 01/10/2019 3:15p Main Office as Lonny Willingham G89.21 Chronic pain due Of 12/24/13 DO, MPH to trauma M54.6 Pain in thoracic spine M99.02 Segmental and somatic dysfunction of thoracic region M54.5 Low back pain M99.03 Segmental and somatic dysfunction of lumbar region M54.2 Cervicalgia M99.01 Segmental and somatic dysfunction of cervical region M54.17 Radiculopathy, lumbosacral region M65.88 Other synovitis and tenosynovitis, other site M79.18 Myalgia, other site Z13.31 Encounter for screening for depression 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 Office Visit 12/07/2018 3:00p Main Office as Lonny Willingham G89.21 Chronic pain due Of 12/24/13 DO, [facility]PH to trauma M54.2 Cervicalgia M99.01 Segmental and somatic dysfunction of cervical region M54.6 Pain in thoracic spine M99.02 Segmental and somatic dysfunction of thoracic region M54.5 Low back pain M99.03 Segmental and somatic dysfunction of lumbar region M25.511 Pain in right shoulder M99.07 Segmental and somatic dysfunction of upper extremity F31.81 Bipolar II disorder K21.9 Gastro-esophageal reflux disease without esophagitis 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 J45.998 Other asthma 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 G47.8 Other sleep disorders Office Visit 11/08/2018 2:45p Main Office as Lonny Willingham G89.21 Chronic pain due Of 12/24/13 DO, MPH to trauma M54.2 Cervicalgia M65.88 Other synovitis and tenosynovitis, other site M79.18 Myalgia, other site 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 Office Visit 09/16/2018 1:45p Main Office as Lonny Willingham G89.21 Chronic pain due Of 12/24/13 DO, MPH to trauma M54.5 Low back pain M54.2 Cervicalgia M99.01 Segmental and somatic dysfunction of cervical region M25.551 Pain in right hip M25.552 Pain in left hip M25.561 Pain in right knee M25.562 Pain in left knee M15.9 Polyosteoarthritis, unspecified Z13.89 Encounter for screening for other disorder Z71.89 Other specified counseling Z79.891 assisted (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 analgesic F17.210 Nicotine dependence, cigarettes, uncomplicated M54.6 Pain in thoracic spine M99.02 Segmental and somatic dysfunction of thoracic region M99.03 Segmental and somatic dysfunction of lumbar region Z71.3 Dietary counseling and surveillance Plan of Treatment Future Appointment(s):06/07/2019 10:30 am - Lonny Willingham DO, MPH at Main Office as Of 12/24/1405 - Lonny Willingham DO, MPHG89.21 Chronic pain due to traumaComments:Chronic. Symptoms and complaints discussed and reviewed today. No significant changes in physical findings. Continue current medical pain management.M54.5 Low back painComments:Chronic. Symptoms and complaints discussed and reviewed today.No changes in physical findings. Patient is stable and comfortable when current medical therapy is rendered.M54.17 Radiculopathy, lumbosacral regionComments:Chronic. Symptoms and complaints discussed and reviewed today. No changes in physical findings; patient is stable on current medical therapy.M65.88 Other synovitis and tenosynovitis, other siteComments: Chronic. Symptoms and complaints discussed and reviewed today. Physical findings reviewed and warrant intervention. Continue current medical pain management. Injection therapy today - tendon sheath and tendon i/o. Informed consent given/refusal reviewed. See procedure sheet.M79.18 Myalgia, other siteComments:Injection therapy today - Trigger Point injections. Informed consent given/refusal reviewed. See procedure sheet.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New Labs:Urine Drug Screen, Ordered: 05/09/19Comments: Urine drug screen sample taken. Rapid Point of Care Cup was reviewed in office with patient. Will send out UDT Rapid to Quantitative lab for confirmation testing. Urine Drug Testing (UDT) was done today to monitor opiate use and to monitor possible use of illicit substances. I will discuss the results at the next appointment from the Quantitative lab.The following tests were ordered:6 AM , AMPH, LUIS ANTONIO, AZRA, BUP, CARIS, COCM, COT, ETG, FENT, MCSHSG, OPI, OXY, PCP, TAPEN, XTSY, ZOLP. A urine drug test (UDT) was ordered for this patient and collected on site today. Creatinine has been ordered as well for specimen validity, not for kidney function. Preliminary UDT results are not final and should not be used to determine patient care or plan of treatment. Initially a qualitative immunoassay screen will be done. Any inconsistent or positive findings will be further tested with a more comprehensive quantitative confirmation LCMS study. It is part of the treatment process of prescribing controlled substances and is considered standard of care.AllComments:Continue current medical pain management; injection therapy, osteopathic manipulation, PT / modalities, and consults as needed to manage chronic pain.Non - opioid pain management discussed and optionsdiscussed.Side effects discussed; anticipatory guidance given. Patient clearly understand and agree with all medical treatments and suggestions. All medicines prescribed are adequate and appropriate for this patient's complaint of pain, medical history, physical, and personal goals.Goals of Treatment are to provide adequate and appropriate multidisciplinary medical pain management to increase/ maintain patient's quality of life and functionality while maintaining satisfactory side effect profile andminimizing prison end-organ damage. Importance of regular nutrition throughout the day discussed.Activity as toleratedContinue with PCP
[2019-05-24 20:36] VITALS: BP 138/72
--- NOTE | 2019-05-24 21:19 | UC ---
Lower Extremity/Ankle HPI - HPI Summary HPI Summary: 34 y/o female presents to the urgent care c/o righ ankle pain w/ swelling s/p twisting her ankle on uneven pavement while walking in the dark last night. Pt reports she applied ice and has taken her medication for her chronic back pain, Oxycodone and Gabapentin PO w/o any relief of pain. Pt is walking w/ mild limping. Pain is 8/10 w/ movement and walking. Swelling in the lateral side of her Rt ankle. Pt denies numbness or tingling sensation over the RT foot or ankel , calf pain, Hx of trauma, SOB, chest pain, abdominal pain, N/V/d. She is on pain management w/ Dr Willingham. - History of Current Complaint Chief Complaint: UCLowerExtremity Stated Complaint: RT ANKLE COMPLAINT Time Seen by Provider: 05/24/19 21:06 Hx Obtained From: Patient Hx Last Menstrual Period: DEPO ?: No Onset/Duration: Sudden Onset, Lasting Days - 1 day, Still Present Severity Initially: Severe Severity Currently: Moderate Pain Intensity: 8 Pain Scale Used: 0-10 Numeric Aggravating Factor(s): Standing, Ambulation Alleviating Factor(s): Rest, Elevation, OTC Meds Able to Bear Weight: Yes - Risk Factors Gout Risk Factors: Negative DVT Risk Factors: Negative Septic Arthritis Risk Factor: Negative - Allergies/Home Medications Allergies/Adverse Reactions: Allergies Allergy/AdvReac Type Severity Reaction Status Date / Time Adhesive Tape Allergy Rash Verified 05/24/19 20:37 latex Allergy Rash Verified 05/24/19 20:37 SEASONAL Allergy Runny Nose Uncoded 05/24/19 20:37 PMH/Surg Hx/FS Hx/Imm Hx Previously Healthy: Yes Other Endocrine History: osteoarthritis Respiratory History: Asthma GI/ History: Gastroesophageal Reflux Other Neurological History: chronic back pain w/ DDD and herniated lumbar disc Psychological History: Depression - Surgical History Surgical History: Yes Surgery Procedure, Year, and Place: left knee arthroscopies x3, 1998, 1999, 2013 - [place]. teeth extractions. right eye orbital fx repair 2011 - [place]. cholecystectomy 2016 - [place]. left ankle ligament repair - 2015 - [facility] [place]. RIGHT SHOULDER SCOPE 05/03/18. 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 Substance Use Type: None Smoking Status (MU): Heavy Every Day Tobacco Smoker Type: Cigarettes Amount Used/How Often: 1/2 - 1 PPD for 18 years Length of Time of Smoking/Using Tobacco: 12 YEARS Have You Smoked in the Last Year: Yes - Immunization History Most Recent Influenza Vaccination: 07/2017 Vaccination Up to Date: Yes Review of Systems All Other Systems Reviewed And Are Negative: Yes Constitutional: Positive: Negative Skin: Positive: Negative Eyes: Positive: Negative ENT: Positive: Negative Respiratory: Positive: Negative Cardiovascular: Positive: Negative Gastrointestinal: Positive: Negative Genitourinary: Positive: Negative Motor: Positive: Negative Neurovascular: Positive: Negative Musculoskeletal: Positive: Decreased ROM - Rt ankle, Other: - RT ankle pain and swelling s/p injury Neurological: Positive: Negative Psychological: Positive: Negative Is Patient Immunocompromised?: No Physical Exam - Summary Physical Exam Summary: Vital Signs Reviewed: Yes General: well developed, well nourished obese female, sitting in the examining table w/o any apparent distress Eyes: Positive: Conjunctiva Clear - PERRLA, EOMI, ENT: Positive: Normal ENT inspection, Hearing grossly normal, Pharynx normal, TMs normal Neck: Positive: Supple, Nontender, No Lymphadenopathy Respiratory: Positive: Chest non-tender, Lungs clear, Normal breath sounds, No respiratory distress Cardiovascular: Positive: RRR, No Murmur, Pulses Normal, Brisk Capillary Refill Abdomen Description: Positive: Nontender, No Organomegaly, Soft. Negative: CVA Tenderness (R), CVA Tenderness (L) Bowel Sounds: Positive: Present Musculoskeletal: - Ankle: Pt is able to bear weight and ambulate w/ limping. The R ankle is without obvious asymmetry or deformity when compared to the L ankle. Decreased ROM due to pain. mild swelling at the lateral malleolus, with tenderness to palpation. No ecchymosis or bruising observed. No Tenderness to palpation over the medial malleolus , no swelling observed. Talar tilt test is negative for ligament laxity to valgus or varus stress. Negative anterior drawer. Peroneal nerve is intact with strong eversion and plantar flexion. Positive sensation over the Rt foot and Rt ankle, positive pulses, capillary refill intact Neurological Exam: Normal Psychological Exam: Normal Skin: warm and dry Triage Information Reviewed: Yes Vital Signs: Initial Vital Signs Temp 97.5 F 05/24/19 20:33 Pulse 87 05/24/19 20:33 Resp 12 05/24/19 20:33 BP 138/72 05/24/19 20:33 Pulse Ox 97 05/24/19 20:33 Lower Extremity Course/Dx - Course Course Of Treatment: 34 y/o female presents to the urgent care c/o righ ankle pain w/ swelling s/p twisting her ankle on uneven pavement while walking in the dark last night. Pt reports she applied ice and has taken her medication for her chronic back pain, Oxycodone and Gabapentin PO w/o any relief of pain. Pt is walking w/ mild limping. Pain is 8/10 w/ movement and walking. Swelling in the lateral side of her Rt ankle. Pt denies numbness or tingling sensation over the RT foot or ankel , calf pain, Hx of trauma, SOB, chest pain, abdominal pain, N/V/d. She is on pain management w/ Dr Willingham. Hx obtained. Rt ankle X-ray ordered, Impression: lateral malleolus Soft tissue swelling, no acute fracture. DR Grajeda agrees w/ X -ray reading. Final radiology report will be done tomoorw and Pt will be notified of any abnormality. Pt most likely with a RT ankle Sprain. Pt declined a gel splint and crutches and requested a CAM boot. P's RT ankle immobilized with CAM boot, and advied to continue taken her pain medications, RICE and f/u w / her Orthopedic Dr Roberts in 1 week if not improvement of symptoms for further treatment. Pt understood and agreed w/ plan of care and left the clinic ambulating. - Differential Dx/Diagnosis Differential Diagnosis/HQI/PQRI: Arthritis, Contusion, Dislocation, Fracture ( Closed), Sprain, Strain, Tendonitis Provider Diagnosis: Sprain of right ankle, Right ankle injury Discharge - Sign-Out/Discharge Documenting (check all that apply): Patient Departure - D/C home All imaging exams completed and their final reports reviewed: No - Discharge Plan Condition: Stable Disposition: HOME Patient Education Materials: Ankle Sprain (ED) Referrals: Yahaira Alejo MD [Primary Care Provider] - 3 Days Richard Roberts MD [Medical Doctor] - 3 Days Additional Instructions: 1-Please continue taking your pain medication as directed to alleviate pain and swelling. 2-Please apply ice, keep your ankle immobilized with the CAM boot. Avoid standing for long periods of time or strenuous exercise. elevate ankle to decrease swelling 3- Please f/u with your Orthopedic DR Roberts in 3 days if not improvement of symptoms for further evaluation and treatment. 4- Final radiology report will be done tomorrow. You will be notified of any abnormality for further management - Billing Disposition and Condition Condition: STABLE Disposition: Home
--- NOTE | 2019-05-25 11:24 | ED ---
Progress - Progress Note Progress Note: Final read of xray reports soft tissue swelling. Course/Dx - Diagnoses Provider Diagnoses: Sprain of right ankle, Right ankle injury Discharge - Sign-Out/Discharge Documenting (check all that apply): Patient Departure All imaging exams completed and their final reports reviewed: Yes - Discharge Plan Condition: Stable Disposition: HOME Patient Education Materials: Ankle Sprain (ED) Referrals: Yahaira Alejo MD [Primary Care Provider] - 3 Days Richard Roberts MD [Medical Doctor] - 3 Days Additional Instructions: 1-Please continue taking your pain medication as directed to alleviate pain and swelling. 2-Please apply ice, keep your ankle immobilized with the CAM boot. Avoid standing for long periods of time or strenuous exercise. elevate ankle to decrease swelling 3- Please f/u with your Orthopedic DR Roberts in 3 days if not improvement of symptoms for further evaluation and treatment. 4- Final radiology report will be done tomorrow. You will be notified of any abnormality for further management - Billing Disposition and Condition Condition: STABLE Disposition: Home
== END 2019-05-24 22:15 | disposition home or self-care (01) ==
LOC: UCCORT 20:12
DX: S93.401A Sprain of unspecified ligament of right ankle, initial encounter (principal); X50.0XXA Overexertion from strenuous movement or load, initial encounter; Y93.01 Activity, walking, marching and hiking; Y92.9 Unspecified place or not applicable; F17.210 Nicotine dependence, cigarettes, uncomplicated
CPT/HCPCS: 99212; G0463

== ENCOUNTER 2019-08-27 20:56 | Emergency (ER) | payer OTHER ==
--- OUTSIDE RECORDS SUMMARY | 2019-08-27 21:27 | XMS REPORT | Continuity of Care Document ---
:1985 External Reference #:[id number] Author Name Lonny Willingham DO MPH Address [address] [place] [address], [address] [place] [address] Care Team Providers Name Role Phone Yahaira Alejo L., MD - Family Medicine Care Team Information Senior Data Developer [phone] Problems Description No Information Available Social History Type Date Description Comments Sex Unknown ETOH Use Former Alcohol Use Alcoholic Tobacco Use Start: Unknown Patient is a current smoker, smokes every day Recreational Drug Use Former Drug User Smoking Status Reviewed: 08/08/19 Patient is a current smoker, smokes every day Allergies, Adverse Reactions, Alerts Active Allergies Reaction Severity Comments Date Latex 09/16/2018 Medications Active Medications SIG Qnty Indications Ordering Date Provider Cyclobenzaprine HCL si by mouth 60tabs Lonny Willingham, 08/08/2019 10mg every 8 to 12 DO, MPH Tablets hours as needed Oxycodone HCL si by mouth 90tabs Lonny Willingham, 09/17/2018 5mg Tablets every 8 hours as DO, MPH directed chronic pain patient Gabapentin by mouth three 90tabs Unknown 800mg Tablets times a day as directed Seroquel 2 by mouth every 120tabs Unknown 300mg Tablets day at bedtime as directed Seroquel 1 by mouth twice 30tabs Unknown 50mg Tablets a day as directed Omeprazole 1 by mouth every Unknown 40mg Capsules DR day Advair Diskus 1 puffs twice a Unknown day 250-50mcg/Dose Aerosol Albuterol Inhalation Unknown 90mcg/Dose Aerosol Vitamin D3 Super Unknown Strength 2000Unit Capsules Trazodone HCL 2 by mouth every 30tabs Unknown 100mg Tablets night History Medications Zanaflex si/2 by mouth 30tabs Lonny Willingham DO, 02/08/2019 - 4mg Tablets every 8-12 hours [facility] 07/07/2019 Immunizations Description No Information Available Vital Signs Date Vital Result Comment 08/08/2019 9:31am BP Systolic 134 mmHg BP Diastolic 82 mmHg Heart Rate 88 /min Respiratory Rate 20 /min Height 64 inches 5'4" Weight 220.00 lb Pain Level 6 Pain at this time. Pain Level With Medicine 5 on average with meds Pain Level Without Medicine 9 without meds BMI (Body Mass Index) 37.8 kg/m2 07/09/2019 1:17pm BP Systolic 128 mmHg BP Diastolic 84 mmHg Heart Rate 86 /min Respiratory Rate 20 /min Height 64 inches 5'4" Weight 221.00 lb Pain Level 7 Pain at this time. Pain Level With Medicine 7 on average with meds Pain Level Without Medicine 9 without meds Pain Level After Procedure 5 BP Systolic Recheck 128 mmHg Pulse: 94 BP Diastolic Recheck 88 mmHg Pulse: 94 BMI (Body Mass Index) 37.9 kg/m2 Results Description No Information Available Procedures Date Code Description Status 07/09/2019 01554 Omt 1-2 Body Regions Completed 07/09/2019 Arthrocentesis/Aspiration/Inj Of Major Joint Or Bursa W/ Completed Ultra 07/09/2019 Arthrocentesis/Aspiration/Inj Of Major Joint Or Bursa W/ Completed Ultra 06/07/2019 08272 Omt 3-4 Body Regions Completed 05/09/201942920 Injection, Single Or Mutiple Trigger Points One Or Two Completed Muscles 05/09/2019 Injection, Tendon Origin/Insertion Completed 05/09/201967087 Injection, Tendon Origin/Insertion Completed 05/09/201993845 Inject Tendon/Ligament Completed 05/09/201902808 Inject Tendon/Ligament Completed 05/09/201994225 Inject Tendon/Ligament Completed 05/09/201986538 Inject Tendon/Ligament Completed 02/08/2019 08505 Test Autonomic Nervous System, Sudomotor Completed 02/08/2019 70506 Test Autonomic Nervous System, Cardiovagal Innervation Completed Medical Devices Description No Information Available Encounters Type Date Location Provider Dx Diagnosis Office Visit 07/07/2019 Main Office as Of Lonny Willingham DO G89.21 Chronic pain due 10:15a 12/24/13 MPH to trauma M54.5 Low back pain M54.2 Cervicalgia M46.1 Sacroiliitis, not elsewhere classified Z79.891 [facility] (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 analgesic Office Visit 06/07/2019 10:30a Main Office as Lonny Willingham G89.21 Chronic pain due Of 12/24/13 DO, MPH to trauma M54.5 Low back pain M99.03 Segmental and somatic dysfunction of lumbar region M54.2 Cervicalgia M99.01 Segmental and somatic dysfunction of cervical region M54.6 Pain in thoracic spine M99.02 Segmental and somatic dysfunction of thoracic region Z79.891 [facility] (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 analgesic Office Visit 05/09/2019 11:00a Main Office as Lonny Willingham G89.21 Chronic pain due Of 12/24/13 DO, MPH to trauma M54.5 Low back pain M54.17 Radiculopathy, lumbosacral region M65.88 Other synovitis and tenosynovitis, other site M79.18 Myalgia, other site 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 Office Visit 04/05/2019 11:30a Main Office as Lonny Willingham G89.21 Chronic pain due Of 12/24/13 DO, MPH to trauma M54.2 Cervicalgia M54.5 Low back pain M54.17 Radiculopathy, lumbosacral region Z79.891 [facility] (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 analgesic Office Visit 03/10/2019 3:00p Main Office as Lonny Willingham G89.21 Chronic pain due Of 12/24/13 DO, MPH to trauma M54.2 Cervicalgia M54.5 Low back pain M54.17 Radiculopathy, lumbosacral region 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 Office Visit 02/08/2019 2:45p Main Office as Lonny Willingham G89.21 Chronic pain due Of 12/24/13 DO, MPH to trauma M54.2 Cervicalgia M54.5 Low back pain M54.17 Radiculopathy, lumbosacral region Z79.891 [facility] (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 analgesic G90.3 Multi-system degeneration of the autonomic nervous system Assessments Date Code Description Provider 08/08/2019 G89.21 Chronic pain due to trauma Willingham, Lonny, DO, MPH 08/08/2019 M54.5 Low back pain Willingham, Lonny, DO, MPH 08/08/2019 M54.2 Cervicalgia Willingham, Lonny, DO, MPH 08/08/2019 M46.1 Sacroiliitis, not elsewhere classified Willingham, Lonny, DO, MPH 08/08/2019 M25.562 Pain in left knee Willingham, Lonny, DO, MPH 08/08/2019 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 Willingham, Lonny , DO, MPH 08/08/2019 R53.83 Other fatigue Willingham, Lonny, DO, MPH 07/09/2019 G89.21 Chronic pain due to trauma Willingham, Lonny, DO, MPH 07/09/2019 M54.5 Low back pain Willignham, Lonny, DO, MPH 07/09/2019 M99.03 Segmental and somatic dysfunction of lumbar Willingham, Lonny, DO, MPH region 07/09/2019 M46.1 Sacroiliitis, not elsewhere classified Willingham, Lonny, DO, MPH 07/09/2019 M99.04 Segmental and somatic dysfunction of sacral Willingham, Lonny, DO, MPH region 07/07/2019 G89.21 Chronic pain due to trauma Willingham, Lonny, DO, MPH 07/07/2019 M54.5 Low back pain Willingham, Lonny, DO, MPH 07/07/2019 M54.2 Cervicalgia Willingham, Lonny, DO, MPH 07/07/2019 M46.1 Sacroiliitis, not elsewhere classified Willingham, Lonny, DO, MPH 07/07/2019 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 Willingham, Lonny , DO, MPH 06/07/2019 G89.21 Chronic pain due to trauma Willingham, Lonny, DO, MPH 06/07/2019 M54.5 Low back pain Willingham, Lonyn, DO, MPH 06/07/2019 M99.03 Segmental and somatic dysfunction of lumbar Willingham, Lonny, DO, MPH region 06/07/2019 M54.2 Cervicalgia Willingham, Lonny, DO, MPH 06/07/2019 M99.01 Segmental and somatic dysfunction of Willingham, Lonny, DO, MPH cervical region 06/07/2019 M54.6 Pain in thoracic spine Willingham, Lonny, DO, MPH 06/07/2019 M99.02 Segmental and somatic dysfunction of Willingham, Lonny, DO, MPH thoracic region 06/07/2019 Z79.891 [facility] (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 analgesic Willingham, Lonny , DO, MPH 05/09/2019 G89.21 Chronic pain due to trauma Willingham, Lonny, DO, MPH 05/09/2019 M54.5 Low back pain Willingham, Lonny, DO, MPH 05/09/2019 M54.17 Radiculopathy, lumbosacral region Willingham, Lonny, DO, MPH 05/09/2019 M65.88 Other synovitis and tenosynovitis, other Willingham, Lonny, DO , MPH site 05/09/2019 M79.18 Myalgia, other site Willingham, Lonny, DO, MPH 05/09/2019 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 Willingham, Lonny , DO, MPH 04/05/2019 G89.21 Chronic pain due to trauma Willingham, Lonny, DO, MPH 04/05/2019 M54.2 Cervicalgia Willingham, Lonny, DO, MPH 04/05/2019 M54.5 Low back pain Willingham, Lonny, DO, MPH 04/05/2019 M54.17 Radiculopathy, lumbosacral region Willingham, Lonny, DO, MPH 04/05/2019 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 Willingham, Lonny , DO, MPH 03/10/2019 G89.21 Chronic pain due to trauma Willingham, Lonny, DO, MPH 03/10/2019 M54.2 Cervicalgia Willingham, Lonny, DO, MPH 03/10/2019 M54.5 Low back pain Willingham, Lonny, DO, MPH 03/10/2019 M54.17 Radiculopathy, lumbosacral region Lonny Willingham DO MPH 03/10/2019 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 Lonny Willingham DO MPH 02/08/2019 G89.21 Chronic pain due to trauma Lonny Willingham DO MPH 02/08/2019 M54.2 Cervicalgia Lonny Willingham DO MPH 02/08/2019 M54.5 Low back pain Lonny Willingham DO MPH 02/08/2019 M54.17 Radiculopathy, lumbosacral region Lonny Willingham DO, MPH 02/08/2019 Z79.891 [facility] (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 analgesic Lonny Willingham DO MPH 02/08/2019 G90.3 Multi-system degeneration of the autonomic Lonny Willingham DO MPH nervous system Plan of Treatment Future Appointment(s):09/06/2019 10:15 am - Lonny Willingham DO MPH at Main Office as Of 12/24/1408 - Lonny Willingham DO, MPHG89.21 Chronic pain due to traumaComments:Chronic. Symptoms and complaints discussed and reviewed today. No significant changes in physical findings. Continue current medical pain management.M54.5 Low back painComments:Chronic. Symptoms and complaints discussed and reviewed today.No changes in physical findings. Patient is stable and comfortable when current medical therapy is rendered.M54.2 CervicalgiaComments:Chronic. Symptoms and complaints discussed and reviewed today. No significant changes in physical findings. Continue current medical pain management.M46.1 Sacroiliitis, not elsewhere classifiedComments:Symptoms and complaints discussed and reviewed today. Continue current medical pain management.M25.562 Pain in left kneeComments:Chronic.Symptoms and complaints discussed and reviewed today. No significant changes in physical findings. Continue current medical pain management.Z79.891 [facility] (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 analgesicNew Labs:Urine Drug Screen, Ordered: 08/08/19Comments:Urine drug screen sample taken. Rapid Point of Care Cup was reviewed in office with patient. Will send out UDT Rapid to [facility] for confirmation testing. Urine Drug Testing (UDT) was done today to monitor opiate use and to monitor possible use of illicit substances. I will discuss the results at the next appointment from the [facility].The following tests were ordered:6 AM, AMPH, LUIS ANTONIO, AZRA, BUP, CARIS, COCM, [...] controlled substances and is considered standard of care.R53.83 Other fatigueComments:Symptoms and complaints discussed and reviewed today. No significant changes in physical findings. Continue current medical pain management. B12 injection administered after patient evaluated. 1ml IM for fatigue. (See Consent for injection-B12 document for lot number and expiration date.)AllNew Medication:Cyclobenzaprine HCL 10 mg - si by mouth every 8 to 12 hours as neededComments:Continue current medical pain management; injection therapy, osteopathic [...] while maintaining satisfactory side effect profile andminimizing fdc end-organ damage. Importance of regular nutrition throughout the day discussed.Activity as toleratedContinue with PCP Functional Status Description No Information Available Mental Status Description No Information Available Referrals Refer to Reason for Referral Status Appt Date Lonny Willingham D.O. MPH Created [address] [place] [address] [place] [id number] [phone]
--- OUTSIDE RECORDS SUMMARY | 2019-08-27 21:27 | XMS REPORT | Continuity of Care Document ---
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 Soda [phone] Medicine Problems Active Problems Provider Date Closed fracture of lateral malleolus Cristopher Meraz MD Onset: 07/31/2011 Sprain of ankle Cristopher Meraz MD Onset: 06/14/2012 Neck pain Anjelica Mace MD Onset: 08/12/2017 Myalgia Anjelica Mace MD Onset: 08/12/2017 Social History Type Date Description Comments Sex Unknown Tobacco Use Start: Unknown currently smokes 1/2 Pack Daily ETOH Use Denies alcohol use Recreational Drug Use Denies Drug Use Tobacco Use Start: Unknown Patient is a current smoker, smokes every day Smoking Status Reviewed: 06/21/19 Patient is a current smoker, smokes every day Exercise Type/Frequency Exercises regularly Allergies, Adverse Reactions, Alerts Active Allergies Reaction Severity Comments Date NKDA 05/30/2011 Latex 03/08/2019 Medications Active Medications SIG Qnty Indications Ordering Provider Date Peak Air Peak Flow please teach use 1unDean Balderrama MD 06/21/2019 Meter Adult/Pediatric use as directed. dx: asthma Device Acetaminophen 2 tabs by mouth Unknown 500mg every 8 hours as Tablets needed pain, mdd=3g Advair Diskus 1 puff in am 1 Unknown puff at night Proair HFA as Needed Unknown Vitamin D 1 by mouth every Unknown 2000Unit day Capsules Gabapentin take 1 tablet by Unknown 800mg Tablets mouth four times a day Oxycodone HCL 1 po 3 times Unknown 5mg Tablets daily Tizanidine HCL take 1/2 tablet Unknown 4mg by mouth twice Tablets daily Seroquel take one tablet Unknown 300mg Tablets by mouth every evening Trazodone HCL 2 tab by mouth Unknown 100mg at bedtime as Tablets needed for sleep Pantoprazole Sodium Take One Tablet Unknown 40mg By Mouth Every Tablets DR Day Seroquel 1 tab by mouth Unknown 50mg Tablets during the day as needed History Medications Nicotine Apply 1 Patch Once 42units F17.210 Dean Lozano, 03/08/2019 - Daily MD Unknown 7mg/24HR Patches 24HR Spiriva Respimat 2 inhalation once a 4gm J45.20 Dean Lozano, 03/08/2019 - day at night. Unknown 1.25mcg/Act please load and Aerosol teach inhaler. Immunizations CPT Code Status Date Vaccine Lot # [id number] Given 08/10/2002 MMR Vaccine, Live, For Subcutaneous Use Vital Signs Date Vital Result Comment 06/21/2019 9:15am BP Systolic Lying Down Resting Right Arm 122 mmHg BP Diastolic Lying Down Resting Right Arm 72 mmHg Heart Rate 84 /min Respiratory Rate 16 /min Height 64 inches 5'4" Weight 217.00 lb BMI (Body Mass Index) 37.2 kg/m2 BSA (Body Surface Area) 2.03 m2 [place] body weight in kilograms 54 kg O2 % BldC Oximetry 96 % 03/08/2019 2:03pm BP Systolic Sitting Left Arm 100 mmHg BP Diastolic Sitting Left Arm 62 mmHg Heart Rate 62 /min Respiratory Rate 16 /min Height 64 inches 5'4" Weight 210.00 lb BMI (Body Mass Index) 36.0 kg/m2 BSA (Body Surface Area) 2.00 m2 [place] body weight in kilograms 54 kg O2 Saturation Level with Exercise 98 % Results Description No Information Available Procedures Date Code Description Status 03/22/2019 48620 Echocardiogram Complete Completed Medical Devices Description No Information Available Encounters Type Date Location Provider Dx Diagnosis Office Visit 06/21/2019 Pulmonology Narcisa Phelps, J45.20 Mild intermittent 9:20a PA asthma, uncomplicated F17.210 Nicotine dependence, cigarettes, uncomplicated Z71.6 Tobacco abuse counseling Office Visit 03/08/2019 2:00p Pulmonology Dean Lozano, J45.20 Mild intermittent MD asthma, uncomplicated 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 F17.210 Nicotine dependence, cigarettes, uncomplicated Z71.6 Tobacco abuse counseling Assessments Date Code Description Provider 06/21/2019 J45.20 Mild intermittent asthma, uncomplicated Narcisa Phelps PA 06/21/2019 F17.210 Nicotine dependence, cigarettes, uncomplicated Narcisa Phelps PA 06/21/2019 Z71.6 Tobacco abuse counseling Narcisa Phelps PA 03/22/2019 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 Jemal Murillo MD 03/08/2019 J45.20 Mild intermittent asthma, uncomplicated Dean Lozano MD 03/08/2019 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 Dean Lozano MD 03/08/2019 F17.210 Nicotine dependence, cigarettes, uncomplicated Dean Lozano MD 03/08/2019 Z71.6 Tobacco abuse counseling Dean Lozano MD Plan of Treatment Future Appointment(s):08/02/2019 10:20 am - Narcisa Phelps PA at [facility]/ 24/2020 9:20 am - Juanito Harrison M.D., FACC at Cardiology [id number] - Margarito Campuzano M.D.Z48.815 Encounter for surgical aftercare following surgery on the digestive system Functional Status Description No Information Available Mental Status Description No Information Available Referrals Refer to Reason for Referral Status Appt Date Sabrina Nj MD Pulmonary Artery Aneurysm Closed 04/06/2019 [address] [facility] [address] [place] [address] [phone]
--- OUTSIDE RECORDS SUMMARY | 2019-08-27 21:27 | XMS REPORT | Continuity of Care Document ---
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 [employer] Medicine Problems Active Problems Provider Date Closed fracture of lateral malleolus Cristopher Meraz MD Onset: 07/31/2011 Sprain of ankle Cristopher Meraz MD Onset: 06/14/2012 Neck pain Anjelica Mace MD Onset: 08/12/2017 Myalgia Anjelica Mace MD Onset: 08/12/2017 Social History Type Date Description Comments Sex Unknown Tobacco Use Start: Unknown currently smokes 1/2 Pack Daily ETOH Use Rarely consumes alcohol Tobacco Use Start: Unknown Patient is a current smoker, smokes every day Recreational Drug Use Marijuana Smoking Status Reviewed: 07/29/19 Patient is a current smoker, smokes every day Exercise Type/Frequency Exercises regularly Allergies, Adverse Reactions, Alerts Active Allergies Reaction Severity Comments Date NKDA 05/30/2011 Latex 03/08/2019 Medications Active Medications SIG Qnty Indications Ordering Provider Date Celecoxib Eligio Hoover, 07/29/2019 100mg DO Capsules Ketorolac 1 three times a 14tabs Eligio Hoover, 07/29/2019 Tromethamine day as needed DO 10mg Tablets Bisacodyl Ec at 6:30 at night 4tabs Justen, 07/28/2019 5mg on the day before Christmarlene HLetty, Tablets DR adarsh arndt M.D. take all 4 bisacodyl tablets Magnesium Citrate 1 pm on the day 296ml Justen, 07/28/2019 before your Margarito Abarca, 1.745GM/30ML colonoscopy drink M.D. Solution entire bottle of magnesium citrate Loperamide HCL 30 ml in the 240ml [facility], 07/28/2019 morning, followed Margarito Abarca, 1mg/7.5ML Liquid by 15 ml after M.D. each loose stool. Do not take over 120 ml per day. Peak Air Peak Flow please teach use 1unDean Balderrama MD 06/21/2019 Meter use as directed. Adult/Pediatric dx: asthma Device Seroquel 1 tab by mouth Unknown 50mg Tablets during the day as needed Pantoprazole Sodium Take One Tablet By Unknown Mouth Every Day 40mg Tablets DR Trazodone HCL 2 tab by mouth at Unknown 100mg bedtime as needed Tablets for sleep Seroquel take one tablet by Unknown 300mg mouth every Tablets evening Oxycodone HCL 1 po 3 times daily Unknown 5mg Tablets Gabapentin take 1 tablet by Unknown 800mg mouth four times a Tablets day Vitamin D 1 by mouth every Unknown 2000Unit day Capsules Proair HFA as Needed Unknown Advair Diskus 1 puff in am 1 Unknown puff at night Acetaminophen 2 tabs by mouth Unknown 500mg every 8 hours as Tablets needed pain, mdd=3g History Medications Nicotine Apply 1 Patch Once 42units F17.210 Dean Lozano, 03/08/2019 - Daily Unknown 7mg/24HR Patches 24HR Spiriva Respimat 2 inhalation once a 4gm J45.20 Dean Lozano, 03/08/2019 - day at night. Unknown 1.25mcg/Act please load and Aerosol teach inhaler. Medications Administered in Office Medication SIG Qnty Indications Ordering Provider Date Depomedrol 40mg/1cc Eligio Hoover DO 07/29/2019 (methylprednisolone acetate) Injection Immunizations CPT Code Status Date Vaccine Lot # [id number] Given 08/10/2002 MMR Vaccine, Live, For Subcutaneous Use Vital Signs Date Vital Result Comment 07/29/2019 9:28am BP Systolic 124 mmHg BP Diastolic 79 mmHg Body Temperature 97.2 F Heart Rate 80 /min Height 64 inches 5'4" Weight 220.00 lb BMI (Body Mass Index) 37.8 kg/m2 BSA (Body Surface Area) 2.04 m2 [place] body weight in kilograms 54 kg O2 % BldC Oximetry 96 % 07/28/2019 11:27am BP Systolic 116 mmHg BP Diastolic 80 mmHg Heart Rate 77 /min Height 64 inches 5'4" Weight 219.00 lb BMI (Body Mass Index) 37.6 kg/m2 BSA (Body Surface Area) 2.03 m2 [place] body weight in kilograms 54 kg O2 % BldC Oximetry 94 % Results Description No Information Available Procedures Date Code Description Status 07/29/2019 23485 Asp./Injection major joint Completed 03/22/2019 17376 Echocardiogram Complete Completed Medical Devices Description No Information Available Encounters Type Date Location Provider Dx Diagnosis Office Visit 07/29/2019 Orthopaedic Office Eligio Hoover, M25.562 Pain in left knee 9:30a DO M25.462 Effusion, left knee Office Visit 07/28/2019 11:30a Surgical Mahnaz Patel K52.9 Noninfective Office PA gastroenteritis and colitis, unspecified F17.210 Nicotine dependence, cigarettes, uncomplicated Z12.11 Encounter for screening for malignant neoplasm of colon Office Visit 06/21/2019 9:20a Pulmonology Narcisa Phelps, J45.20 Mild intermittent PA asthma, uncomplicated F17.210 Nicotine dependence, cigarettes, uncomplicated Z71.6 Tobacco abuse counseling Office Visit 03/08/2019 2:00p Pulmonology Dean Lozano J45.20 Mild intermittent MD asthma, uncomplicated 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 F17.210 Nicotine dependence, cigarettes, uncomplicated Z71.6 Tobacco abuse counseling Assessments Date Code Description Provider 07/29/2019 M25.562 Pain in left knee Eligio Hoover, DO 07/29/2019 M25.462 Effusion, left knee Eligio Hoover, DO 07/28/2019 K52.9 Chronic diarrhea Mahnaz Patel PA 07/28/2019 F17.210 Nicotine dependence, cigarettes, uncomplicated Mahnaz Patel PA 07/28/2019 Z12.11 Encounter for screening for malignant neoplasm Mahnaz Patel PA of colon 06/21/2019 J45.20 Mild intermittent asthma, uncomplicated Narcisa [...] Dean Lozano MD Plan of Treatment Future Appointment(s):09/19/2019 9:00 am - Mahnaz Patel PA at Surgical Tnhtiy4509/09/2019 10:00 am - Margarito Campuzano M.D. at Operating Room 9:20 am - Juanito Harrison M.D., FACC at Cardiology Office Functional Status Description No Information Available Mental Status Description No Information Available Referrals Refer to Reason for Referral Status Appt Date Sabrina Nj MD Pulmonary Artery Aneurysm Closed 04/06/[address] [place] [address] [phone]
--- OUTSIDE RECORDS SUMMARY | 2019-08-27 21:27 | XMS REPORT | Continuity of Care Document ---
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 Problems Description No Information Available Social History Type Date Description Comments Sex Unknown ETOH Use Former Alcohol Use Alcoholic Tobacco Use Start: Unknown Patient is a current smoker, smokes every day Recreational Drug Use Former Drug User Smoking Status Reviewed: 07/07/19 Patient is a current smoker, smokes every day Allergies, Adverse Reactions, Alerts Active Allergies Reaction Severity Comments Date Latex 09/16/2018 Medications Active Medications SIG Qnty Indications Ordering Provider Date Oxycodone HCL si by mouth 90tabs Lonny [...] mouth every 30tabs Unknown 100mg night Tablets History Medications Zanaflex si/2 by mouth 30tabs Lonny Willingham DO, 02/08/2019 - 4mg Tablets every 8-12 hours [facility] 07/07/2019 Immunizations Description No Information Available Vital Signs Date Vital Result Comment 07/07/2019 10:24am BP Systolic 128 mmHg BP Diastolic 78 mmHg Heart Rate 74 /min Respiratory Rate 20 /min Height 64 inches 5'4" Weight 220.00 lb Pain Level 6 Pain at this time. Pain Level With Medicine 5 on average with meds Pain Level Without Medicine 9 without meds BMI (Body Mass Index) 37.8 kg/m2 06/07/2019 10:30am BP Systolic 140 mmHg BP Diastolic 86 mmHg Heart Rate 82 /min Respiratory Rate 20 /min Height 64 inches 5'4" Weight 220.00 lb Pain Level 8 Pain at this time. Pain Level With Medicine 8 on average with meds Pain Level Without Medicine 9 without meds BMI (Body Mass Index) 37.8 kg/m2 Results Description No Information Available Procedures Date Code Description Status 06/07/2019 76515 Omt 3-4 Body Regions Completed 05/09/201900220 Injection, Single Or Mutiple Trigger Points One Or Two Completed Muscles 05/09/2019 08096 Injection, Tendon Origin/Insertion Completed 05/09/2019 44894 Injection, Tendon Origin/Insertion Completed 05/09/2019 49435 Inject Tendon/Ligament Completed 05/09/2019 75823 Inject Tendon/Ligament Completed 05/09/2019 52844 Inject Tendon/Ligament Completed 05/09/201952605 Inject Tendon/Ligament Completed 02/08/2019 29881 Test Autonomic Nervous System, Sudomotor Completed 02/08/2019 93427 Test Autonomic Nervous System, Cardiovagal Innervation Completed 01/10/201974249 Inject Tendon/Ligament Completed 01/10/2019 89149 Inject Tendon/Ligament Completed 01/10/2019 01487 Inject Tendon/Ligament Completed 01/10/2019 82603 Inject Tendon/Ligament Completed 01/10/2019 13741 Injection, Tendon Origin/Insertion Completed 01/10/201942136 Injection, Tendon Origin/Insertion Completed 01/10/201925396 Injection, Single Or Mutiple Trigger Points One Or Two Completed Muscles 01/10/2019 62777 Injection For Nerve Block, Other Peripheral Nerve Or Completed Branch 01/10/2019 28572 Brief Emotional/Behav Assessment W/ Scoring Doc Per Completed Standard Inst 01/10/2019 89752 Omt 3-4 Body Regions Completed Medical Devices Description No Information Available Encounters Type Date Location Provider Dx Diagnosis Office Visit 06/07/2019 Main Office as Of Lonny Willingham DO, G89.21 Chronic pain due 10:30a 12/24/13 MPH to trauma M54.5 Low back pain M99.03 Segmental and somatic dysfunction of lumbar region M54.2 Cervicalgia M99.01 Segmental and somatic dysfunction of cervical region M54.6 Pain in thoracic spine M99.02 Segmental and somatic dysfunction of thoracic region Z79.891 manager front (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 analgesic Office Visit 05/09/2019 11:00a Main Office as Lonny Willingham G89.21 Chronic pain due Of 12/24/13 DO, MPH to trauma M54.5 Low back pain M54.17 Radiculopathy, lumbosacral region M65.88 Other synovitis and tenosynovitis, other site M79.18 Myalgia, other site Z79.891 manager front (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 analgesic Office Visit 04/05/2019 11:30a Main Office as Lonny Willingham G89.21 Chronic pain due Of 12/24/13 DO, MPH to trauma M54.2 Cervicalgia M54.5 Low back pain M54.17 Radiculopathy, lumbosacral region Z79.891 custodial (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 analgesic Office Visit 03/10/2019 3:00p Main Office as Lonny Willingham G89.21 Chronic pain due Of 12/24/13 DO, MPH to trauma M54.2 Cervicalgia M54.5 Low back pain M54.17 Radiculopathy, lumbosacral region Z79.891 manager front (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 analgesic Office Visit 02/08/2019 2:45p Main Office as Lonny Willingham G89.21 Chronic pain due Of 12/24/13 DO, MPH to trauma M54.2 Cervicalgia M54.5 Low back pain M54.17 Radiculopathy, lumbosacral region Z79.891 manager front (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 analgesic G90.3 Multi-system [...] Z13.31 Encounter for screening for depression Z79.891 manager front (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 analgesic Assessments Date Code Description Provider 07/07/2019 G89.21 Chronic pain due to trauma Willingham, Lonny, DO, MPH 07/07/2019 M54.5 Low back pain Willingham, Lonny, DO, MPH 07/07/2019 M54.2 Cervicalgia Willingham, Lonny, DO, MPH 07/07/2019 M46.1 Sacroiliitis, not elsewhere classified Willingham, Lonny, DO, MPH 07/07/2019 Z79.891 manager front (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 analgesic Willingham, Lonny , DO, MPH 06/07/2019 G89.21 Chronic pain due to trauma Willingham, Lonny, DO, MPH 06/07/2019 M54.5 Low back pain Willingham, Lonny, DO, MPH 06/07/2019 M99.03 Segmental and somatic dysfunction of lumbar Willingham, Lonny, DO, MPH region 06/07/2019 M54.2 Cervicalgia Willingham, Lonny, DO, MPH 06/07/2019 M99.01 Segmental and somatic dysfunction of Willingham, Lonny, DO, MPH cervical region 06/07/2019 M54.6 Pain in thoracic spine Willingham, Lonny, DO, MPH 06/07/2019 M99.02 Segmental and somatic dysfunction of Willingham, Lonny, DO, MPH thoracic region 06/07/2019 Z79.891 custodial (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 analgesic Willingham, Lonny , DO, MPH 05/09/2019 G89.21 Chronic pain due to trauma Willingham, Olnny, DO, MPH 05/09/2019 M54.5 Low back pain Willingham, Lonny, DO, MPH 05/09/2019 M54.17 Radiculopathy, lumbosacral region Willingham, Lonny, DO, MPH 05/09/2019 M65.88 Other synovitis and tenosynovitis, other Willingham, Lonny, DO , MPH site 05/09/2019 M79.18 Myalgia, other site Willingham, Lonny, DO, MPH 05/09/2019 Z79.891 manager front (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 analgesic Willingham, Lonny , DO, MPH 04/05/2019 G89.21 Chronic pain due to trauma Willingham, Lonny, DO, MPH 04/05/2019 M54.2 Cervicalgia Willingham, Lonny, DO, MPH 04/05/2019 M54.5 Low back pain Willingham, Lonny, DO, MPH 04/05/2019 M54.17 Radiculopathy, lumbosacral region Willingham, Lonny, DO, MPH 04/05/2019 Z79.891 manager front (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 analgesic Willingham, Lonny , DO, MPH 03/10/2019 G89.21 Chronic pain due to trauma Willingham, Lonny, DO, MPH 03/10/2019 M54.2 Cervicalgia Willingham, Lonny, DO, MPH 03/10/2019 M54.5 Low back pain Willingham, Lonny, DO, MPH 03/10/2019 M54.17 Radiculopathy, lumbosacral region Willingham, Lonny, DO, MPH 03/10/2019 Z79.891 manager front (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 analgesic Willingham, Lonny , DO, MPH 02/08/2019 G89.21 Chronic pain due to trauma Willingham, Lonny, DO, MPH 02/08/2019 M54.2 Cervicalgia Willingham, Lonny, DO, MPH 02/08/2019 M54.5 Low back pain Willingham, Lonny, DO, MPH 02/08/2019 M54.17 Radiculopathy, lumbosacral region Willingham, Lonny, DO, MPH 02/08/2019 Z79.891 manager front (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 analgesic Willingham, Lonny , DO, MPH 02/08/2019 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, Lonny, DO , MPH nervous system 01/10/2019 G89.21 Chronic pain due to trauma Lonny Willingham DO, MPH 01/10/2019 M54.6 Pain in thoracic spine Lonny Willingham DO, MPH 01/10/2019 M99.02 Segmental and somatic dysfunction of Lonny Willingham DO, MPH thoracic region 01/10/2019 M54.5 Low back pain Lonny Willingham DO, MPH 01/10/2019 M99.03 Segmental and somatic dysfunction of lumbar Lonny Willingham DO, MPH region 01/10/2019 M54.2 Cervicalgia Lonny Willingham DO, MPH 01/10/2019 M99.01 Segmental and somatic dysfunction of Lonny Willingham DO, MPH cervical region 01/10/2019 M54.17 Radiculopathy, lumbosacral region Lonny Willingham DO, MPH 01/10/2019 M65.88 Other synovitis and tenosynovitis, other Lonny Willingham DO , MPH site 01/10/2019 M79.18 Myalgia, other site Lonny Willingham DO, MPH 01/10/2019 Z13.31 Encounter for screening for depression Lonny Willingham DO, MPH 01/10/2019 Z79.891 custodial (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 analgesic Lonny Willingham DO, MPH Plan of Treatment Future Appointment(s):07/09/2019 1:00 pm - Lonny Willingham DO MPH at Main Office as Of 12/24/1408 10:00 am - Lonny Willingahm DO MPH at Main Office as Of 12/24/1407 - Lonny Willingham DO, MPHG89.21 Chronic pain [...] and reviewed today. Continue current medical pain management. Physical findings warrant injection therapy.Z79.891 custodial ( 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 analgesicNew Labs:Urine Drug Screen, Ordered: Comments:Urine drug screen sample taken. 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 Importance of regular nutrition throughout the day discussed.Activity as toleratedContinue with PCP Functional Status Description No Information Available Mental Status Description No Information Available Referrals Refer to Reason for Referral Status Appt Date Lonny Willingham D.O. MPH Created [address] [place] [id number] [phone]
--- OUTSIDE RECORDS SUMMARY | 2019-08-27 21:27 | XMS REPORT | Continuity of Care Document ---
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 No Information Available Social History [...] 02/08/2019 - 4mg Tablets every 8-12 hours [facility] 07/07/2019 Immunizations Description No Information Available Vital Signs Date Vital Result Comment 07/09/2019 1:17pm BP Systolic 128 mmHg BP [...] 94 BMI (Body Mass Index) 37.9 kg/m2 07/07/2019 10:24am BP Systolic 128 mmHg BP [...] Available Procedures Date Code Description Status 06/07/2019 22378 Omt 3-4 Body Regions Completed 05/09/201993071 Injection, Single Or Mutiple Trigger Points One Or Two Completed Muscles 05/09/201920290 Injection, Tendon Origin/Insertion Completed 05/09/2019 55890 Injection, Tendon Origin/Insertion Completed 05/09/2019 56476 Inject Tendon/Ligament Completed 05/09/2019 61171 Inject Tendon/Ligament Completed 05/09/2019 25714 Inject Tendon/Ligament Completed 05/09/2019 60413 Inject Tendon/Ligament Completed 02/08/2019 94147 Test Autonomic Nervous System, Sudomotor Completed 02/08/2019 40492 Test Autonomic Nervous System, Cardiovagal Innervation Completed Medical Devices Description No Information Available Encounters Type Date Location Provider Dx Diagnosis Office Visit 07/07/2019 Main Office as Of Lonny Willingham DO G89.21 Chronic pain due 10:15a 12/24/13 MPH to trauma M54.5 Low back pain M54.2 Cervicalgia M46.1 Sacroiliitis, not elsewhere classified 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 Office Visit 06/07/2019 10:30a Main Office as Lonny Willingham G89.21 Chronic pain due Of 12/24/13 , MPH to trauma M54.5 Low back pain M99.03 Segmental and somatic dysfunction of lumbar region M54.2 Cervicalgia M99.01 Segmental and somatic dysfunction of cervical region M54.6 Pain in thoracic spine M99.02 Segmental and somatic dysfunction of thoracic region 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 Office Visit 05/09/2019 11:00a Main Office as Lonny Willingham G89.21 Chronic pain due Of 12/24/13 DO, MPH to trauma M54.5 Low back pain M54.17 Radiculopathy, lumbosacral region M65.88 Other synovitis and tenosynovitis, other site M79.18 Myalgia, other site Z79.891 halfway (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 analgesic Office Visit 04/05/2019 11:30a Main Office as Lonny Willingham G89.21 Chronic pain due Of 12/24/13 DO, MPH to trauma M54.2 Cervicalgia M54.5 Low back pain M54.17 Radiculopathy, lumbosacral region 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 Office Visit 03/10/2019 3:00p Main Office as Lonny Willingham G89.21 Chronic pain due Of 12/24/13 DO, MPH to trauma M54.2 Cervicalgia M54.5 Low back pain M54.17 Radiculopathy, lumbosacral region Z79.891 halfway (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 analgesic Office Visit 02/08/2019 2:45p Main Office as Lonny Willingham G89.21 Chronic pain due Of 12/24/13 DO, MPH to trauma M54.2 Cervicalgia M54.5 Low back pain M54.17 Radiculopathy, lumbosacral region Z79.891 halfway (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 analgesic G90.3 Multi-system degeneration of the autonomic nervous system Assessments Date Code Description Provider 07/09/2019 G89.21 Chronic pain due to trauma Lonny Willingham DO, MPH 07/09/2019 M54.5 Low back pain Lonny Willingham DO, MPH 07/09/2019 M99.03 Segmental and somatic dysfunction of lumbar Lonny Willingham DO, MPH region 07/09/2019 M46.1 Sacroiliitis, not [...] classified Willingham, Lonny, DO, MPH 07/07/2019 Z79.891 halfway (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 analgesic Willingham, Lnony , DO, MPH 06/07/2019 G89.21 Chronic pain due to trauma Willingham, Lonny, DO, MPH 06/07/2019 M54.5 Low back pain Willingham, Lonny, DO, MPH 06/07/2019 M99.03 Segmental and somatic dysfunction of lumbar Willingham, Lonny, DO, MPH region 06/07/2019 M54.2 Cervicalgia Willingham, Lonyn, DO, MPH 06/07/2019 M99.01 Segmental and somatic dysfunction of Willingham, Lonny, DO, MPH cervical region 06/07/2019 M54.6 Pain in thoracic spine Willingham, Lonny, DO, MPH 06/07/2019 M99.02 Segmental and somatic dysfunction of Willingham, Lonny, DO, MPH thoracic region 06/07/2019 Z79.891 halfway (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 analgesic Willingham, Lonny , DO, MPH 05/09/2019 G89.21 Chronic pain due to trauma Willingham, Lonny, DO, MPH 05/09/2019 M54.5 Low back pain Willingham, Lonny, DO, MPH 05/09/2019 M54.17 Radiculopathy, lumbosacral region Willingham, Lonny, DO, MPH 05/09/2019 M65.88 Other synovitis and tenosynovitis, other Willingham, Lonny, DO , MPH site 05/09/2019 M79.18 Myalgia, other site Willingham, Lonny, DO, MPH 05/09/2019 Z79.891 halfway (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 analgesic Willingham, Lonny , DO, MPH 04/05/2019 G89.21 Chronic pain due to trauma Willingham, Lonny, DO, MPH 04/05/2019 M54.2 Cervicalgia Willingham, Lonny, DO, MPH 04/05/2019 M54.5 Low back pain Willingham, Lonny, DO, MPH 04/05/2019 M54.17 Radiculopathy, lumbosacral region Willingham, Lonny, DO, MPH 04/05/2019 Z79.891 halfway (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 analgesic Willingham, Lonny , DO, MPH 03/10/2019 G89.21 Chronic pain due to trauma Willingham, Lonny, DO, MPH 03/10/2019 M54.2 Cervicalgia Willingham, Lonny, DO, MPH 03/10/2019 M54.5 Low back pain Willingham, Lonny, DO, MPH 03/10/2019 M54.17 Radiculopathy, lumbosacral region Willingham, Lonny, DO, MPH 03/10/2019 Z79.891 halfway (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 analgesic Willingham, Lonny , DO, MPH 02/08/2019 G89.21 Chronic pain due to trauma WillinghamAlfonzo salgueroph, DO, MPH 02/08/2019 M54.2 Cervicalgia Willingham, Lonny, DO, MPH 02/08/2019 M54.5 Low back pain WillinghamAlfonzo salgueroph, DO, MPH 02/08/2019 M54.17 Radiculopathy, lumbosacral region Willingham, Lonny, DO, MPH 02/08/2019 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 Symptoms and complaints discussed and reviewed today. No significant changes in physical findings. Continue current medical pain management.M54.5 Low back painComments:Symptoms and complaints discussed and reviewed today. Physical findings warrant injection therapy. Continue current medical pain management. Injection therapy performed today. Informed consent given/refusal reviewed. See procedure sheet. Injection therapy will lower this patient's pain, improve functionality and mitigate the need for increased medication.M99.03 Segmental and somatic dysfunction of lumbar regionComments: Chronic. Symptoms and complaints discussed and reviewed today. Lumbar somatic dysfunctions noted warranting OMT. Continue current medical pain management and OMT. [id number]. OMT performed after evaluation. HVLA.M46.1 Sacroiliitis, not elsewhere classifiedComments:Symptoms and complaints discussed and reviewed today. Continue current medical pain management. Physical findings warrant injection therapy.Injection therapy to left and right SI joint performed today. Injection therapy performed today under musculoskeletal ultrasound for demarcation of pertinent structures and needle guidance for injection - see procedure sheet.M99.04 Segmental and somatic dysfunction of sacral regionComments:Chronic. Symptoms and complaints discussed and reviewed today. Sacral somatic dysfunctions noted warranting OMT. Continue current medical pain management and OMT. Sacral Torsion. OMT performed after evaluation. 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 Importance of regular nutrition throughout the day discussed.Activity as toleratedContinue with PCP Functional Status Description No Information Available Mental Status Description No Information Available Referrals Refer to Reason for Referral Status Appt Date Lonny Willingham D.O. MPH Created [address] [place] [address] [phone]
--- OUTSIDE RECORDS SUMMARY | 2019-08-27 21:27 | XMS REPORT | Summary of Care ---
:1985 Author Organization [facility] Address [address] [address] Care Team Providers Name Role Phone Reji Cody MD Primary Care Provider Reason for Referral Refer to Department Only (Routine) Status Reason Specialty Diagnoses / Referred By Referred To Procedures Contact Contact Pending Review Physical Diagnoses S/P ACL reconstruction Abdifatah Nelson MD [address] [place] [id number] Reason for Visit Reason Comments New Patient Left knee pain. Patient states that she was wrestling with her daughter and the daughters full body weight wet into her knee. Encounter Details Date Type Department Care Team Description 08/18/2019 Office Visit [facility] Abdifatah Nelson, S/P ACL reconstruction [address] MD (Primary Dx) [place] [address] [address] [facility] [phone] [place] [address] [phone] Allergies Active Allergy Reactions Severity Noted Date Comments Latex Rash 08/18/2019 documented as of this encounter (statuses as of 08/18/2019) Medications Medication Sig Dispensed Refills Start Date End Date Status Albuterol Sulfate 108 Take by 0 Active (90 Base) MCG/ACT inhalation. Inhalation AEROSOL POWDER, BREATH ACTIVATED Cholecalciferol (VITAMIN Take 10,000 0 Active D) 2000 units Oral Cap Units by mouth. fluticasone-salmeterol Take 2 Puffs by 0 Active diskus (ADVAIR) 250-50 inhalation. MCG/DOSE Inhalation AEROSOL POWDER, BREATH ACTIVATED Gabapentin 800 MG Oral Take 800 mg by 0 Active Tab mouth. OXYcodone Take 5 mg by 0 Active (OXY-IR,OXY-FAST) 5 MG mouth. Oral Tab Quetiapine Fumarate 300 Take 30 mg by 0 Active MG Oral Tab mouth. Quetiapine Fumarate Take by mouth. 0 Active (SEROQUEL) 50 MG Oral Tab trazodone (DESYREL) 100 TAKE TWO TABLETS 0 03/18/2019 Active MG Oral Tab BY MOUTH EVERY EVENING AT BEDTIME ketorolac (TORADOL) 10 Take 10 mg by 0 Active MG Oral Tab mouth EVERY FOUR HOURS NEEDED for Pain. documented as of this encounter (statuses as of 08/18/2019) Active Problems Not on filedocumented as of this encounter (statuses as of 08/18/2019) Social History Tobacco Use Types Packs/Day Years Used Date Current Every Day Smoker 0 Smokeless Tobacco: Former User Sex Assigned at Date Recorded Not on file Job Start Date Occupation Industry Not on file Not on file Not on file Travel History Travel Start Travel End No recent travel history available. documented as of this encounter Last Filed Vital Signs Vital Sign Reading Time Taken Comments Blood Pressure 105/63 08/18/2019 9:59 AM EDT Pulse 82 08/18/2019 9:59 AM EDT Temperature - - Respiratory Rate - - Oxygen Saturation - - Inhaled Oxygen Concentration - - Weight 99.8 kg (220 lb) 08/18/2019 9:59 AM EDT Height 152.4 cm (5') 08/18/2019 9:59 AM EDT Body Mass Index 42.97 08/18/2019 9:59 AM EDT documented in this encounter Progress Notes Abdifatah Nelson MD - 08/18/2019 9:30 AM EDT Name: Brianna Dsouza : 1985 Date of Service: 08/18/2019 Referring Provider: Gina Rogers Primary Care Provider: Reji Cody Chief Complaint Patient presents with New Patient Left knee pain. Patient states that she was wrestling with her daughter and the daughters full body weight wet into her knee. History of Present Illness: Brianna Dsouza is a 34-y.o. female she is in today for a consult regarding painful left knee. The patient states that she was wrestling with her daughter and her daughter fell with her full body weight onto her left knee patient states since that time she is felt a sensation of instability. Patient has been seen in the past by Dr. Clayton Rogers who has referred the patient for a consultation. The patient has also been treated in the past by Dr. Laz Holloway and also Dr. Billy Reich. Patient states that she has had 3 surgeries involving her left knee 2 of which were ACL reconstructions one was the primary ACL reconstruction performed by Dr. Billy haro and subsequently the patient had a revision ACL reconstruction performed by Dr. Laz Holloway's operation the revisionACL reconstruction was performed on 2013. Sproles surgery was performed on 03/19/2000 which consisted of a left knee arthroscopy and posterior horn medial meniscectomy Dr. Rocha also performed a left anterior cruciate ligament reconstruction on 01/10/1999. She had a recent MRI performed on 08/05/2019 which revealed a near full-thickness tear of the ACL graft. Past Medical History: Diagnosis Date Asthma Bipolar 1 disorder (HCC) Closed fracture dislocation of ankle joint Past Surgical History: Procedure Laterality Date OR FEMUR/KNEE SURG UNLISTED Left 1998 ACL reconstruction OR FEMUR/KNEE SURG UNLISTED Left 1999 Meniscus OR FEMUR/KNEE SURG UNLISTED Left 2013 OR SHOULDER SURG PROC UNLISTED Right 2018 Current Outpatient Medications Medication Sig Albuterol Sulfate 108 (90 Base) MCG/ACT Inhalation AEROSOL POWDER, BREATH ACTIVATED Take by inhalation. Cholecalciferol (VITAMIN D) 2000 units Oral Cap Take 10,000 Units by mouth. fluticasone-salmeterol diskus (ADVAIR) 250-50 MCG/DOSE Inhalation AEROSOL POWDER, BREATH ACTIVATED Take 2 Puffs by inhalation. Gabapentin 800 MG Oral Tab Take 800 mg by mouth. ketorolac (TORADOL) 10 MG Oral Tab Take 10 mg by mouth EVERY FOUR HOURS NEEDED for Pain. OXYcodone (OXY-IR,OXY-FAST) 5 MG Oral Tab Take 5 mg by mouth. Quetiapine Fumarate (SEROQUEL) 50 MG Oral Tab Take by mouth. Quetiapine Fumarate 300 MG Oral Tab Take 30 mg by mouth. trazodone (DESYREL) 100 MG Oral Tab TAKE TWO TABLETS BY MOUTH EVERY EVENING AT BEDTIME No current facility-administered medications for this visit. Allergies Allergen Reactions Latex Rash Social History Socioeconomic History Marital status: Single Spouse name: Not on file Number of children: Not on file Years of education: Not on file Highest education level: Not on file Occupational History Not on file Social Needs Financial resource strain: Not on file Food insecurity: Worry: Not on file Inability: Not on file Transportation needs: Medical: Not on file Non-medical: Not on file Tobacco Use Smoking status: Current Every Day Smoker Packs/day: 0.00 Smokeless tobacco: Former User Substance and Sexual Activity Alcohol use: Not on file Drug use: Not on file Sexual activity: Not on file Lifestyle Physical activity: Days per week: Not on file Minutes per session: Not on file Stress: Not on file Relationships Social connections: Talks on phone: Not on file Gets together: Not on file Attends gnosticism service: Not on file Active member of club or organization: Not on file Attends meetings of clubs or organizations: Not on file Relationship status: Not on file Intimate partner violence: Fear of current or ex partner: Not on file Emotionally abused: Not on file Physically abused: Not on file Forced sexual activity: Not on file Other Topics Concern Not on file Social History Narrative Not on file History reviewed. No pertinent family history. Physical Examination: BP 105/63 | Pulse 82 | Ht 5' (1.524 m) | Wt 220 lb (99.8 kg) | BMI 42.97 kg/ m Well-developed but overweight 34-year-old female in minimal discomfort at rest. Patient was examined in the supine position. Patient has full extension of her knee, left. She is neurovascularly intact. No varus valgus instability. Susanna's test is positive at 25 to 30degrees flexion. Negative posterior sag or Iverson sign noted. Range of motion: Flexion is 110 degrees after which patient has discomfort, as stated earlier patient has full extension. X-rays: Reveal bone tunnels from previous ACL reconstructions. And Endobutton. Impression: 1. S/P ACL reconstruction Plan: I have suggested that the patient participate in a course of physical therapy and wear her knee brace. I do not believe that surgical intervention is indicated at this time. Has significant surgical risk factors including an extensive medical history. And also multiple ACL surgeries. All questions answered. I have suggested that the patient follow-up with Dr. Rogers on a as needed basis. There are no Patient Instructions on file for this visit. Author: Abdifatah Nelson MD 08/18/2019 15:20 documented in this encounter Plan of Treatment Name Type Priority Associated Diagnoses Order Schedule REFER TO PHYSICAL Referral Routine S/P ACL reconstruction Ordered: 2018 THERAPY / REHAB Health Maintenance Due Date Last Done Comments PAP SMEAR 1985 PNEUMOCOCCAL 0-64 YRS (1 of 1 - 1989 PPSV23) DEPRESSION SCREENING 1995 HIV SCREENING 1998 INFLUENZA VACCINE (#1) 2019 HPV IMMUNIZATION SERIES Aged Out No longer eligible based on patient's age to complete this topic MENINGOCOCCAL VACCINE IMM Aged Out No longer eligible based on patient's age to complete this topic documented as of this encounter Results Not on filedocumented in this encounter Visit Diagnoses Diagnosis S/P ACL reconstruction - Primary Other postprocedural status documented in this encounter documented as of this encounter"
--- OUTSIDE RECORDS SUMMARY | 2019-08-27 21:27 | XMS REPORT | Continuity of Care Document ---
:1985 External Reference #:[id number] Author Name Gina Rogers MD Address [address] [place] [address] Care Team Providers Name Role Phone Rjei Cody MD - Family Care Team Information Warning Coordination Meteorologist [phone] Medicine Problems Active Problems Provider Date Closed fracture of lateral malleolus Cristopher Meraz MD Onset: 07/31/2011 Sprain of ankle Cristopher Meraz MD Onset: 06/14/2012 Neck pain Anjelica Mace MD Onset: 08/12/2017 Myalgia Anjelica Mace MD Onset: 08/12/2017 Social History Type Date Description Comments Sex Unknown Tobacco Use Start: Unknown Current Cigarette Smoker 1 Pack Daily Smoking Status Reviewed: 08/09/19 Current Cigarette Smoker 1 Pack Daily ETOH Use Rarely consumes alcohol Tobacco Use Start: Unknown Patient is a current smoker, smokes every day Recreational Drug Use Marijuana Exercise Type/Frequency Exercises regularly Allergies, Adverse Reactions, Alerts Active Allergies Reaction Severity Comments Date NKDA 05/30/2011 Latex 03/08/2019 Medications Active Medications SIG Qnty Indications Ordering Provider Date Ketorolac 1 three times a 14tabs Eligio Hoover, 07/29/2019 Tromethamine day as needed DO 10mg Tablets Bisacodyl Ec at 6:30 at night 4tabs Justen, 07/28/2019 5mg on the day before Waleska Cormier DR colonoscopy MMayur take all 4 bisacodyl tablets Magnesium Citrate 1 pm on the day 296ml Justen, 07/28/2019 before your Margarito Abarca, 1.745GM/30ML colonoscopy drink MMayur Solution entire bottle of magnesium citrate Loperamide HCL 30 ml in the 240ml [facility] 07/28/2019 morning, followed Margarito Abarca, 1mg/7.5ML Liquid by 15 ml after M.D. each loose stool. Do not take over 120 ml per day. Peak Air Peak Flow please teach use 1units Dean Lozano MD 06/21/2019 Meter use as directed. Adult/Pediatric dx: asthma Device Seroquel 1 tab by mouth Unknown 50mg Tablets during the day as needed Trazodone HCL 2 tab by mouth at [...] as Tablets needed pain, mdd=3g History Medications Celecoxib Eligio Hoover 07/29/2019 - 100mg DO Popeye 08/09/2019 Capsules Nicotine Apply 1 Patch Once 42units F17.210 Dean Lozano, 03/08/2019 - 7mg/24HR Daily Unknown Patches 24HR Spiriva Respimat 2 inhalation once a 4gm J45.20 Dean Lozano, 03/08/2019 - day at night. Unknown 1.25mcg/Act please load and Aerosol teach inhaler. Medications Administered in Office Medication SIG Qnty Indications Ordering Provider Date Depomedrol 40mg/1cc Eligio Hoover DO 07/29/2019 (methylprednisolone acetate) Injection Immunizations CPT Code Status Date Vaccine Lot # [id number] Given 08/10/2002 MMR Vaccine, Live, For Subcutaneous Use Vital Signs Date Vital Result Comment 08/09/2019 12:47pm BP Systolic Sitting Left Arm 108 mmHg BP Diastolic Sitting Left Arm 73 mmHg Body Temperature 97.4 F Heart Rate 72 /min Height 64 inches 5'4" Weight 220.00 lb BMI (Body Mass Index) 37.8 kg/m2 BSA (Body Surface Area) 2.04 m2 [place] body weight in kilograms 54 kg O2 % BldC Oximetry 92 % 07/29/2019 9:28am BP Systolic 124 mmHg BP Diastolic 79 mmHg Body Temperature 97.2 F Heart Rate 80 /min Height 64 inches 5'4" Weight 220.00 lb BMI (Body Mass Index) 37.8 kg/m2 BSA (Body Surface Area) 2.04 m2 [place] body weight in kilograms 54 kg O2 % BldC Oximetry 96 % Results Description No Information Available Procedures Date Code Description Status 07/29/2019 92707 Asp./Injection major joint Completed 03/22/2019 44166 Echocardiogram Complete Completed Medical Devices Description No Information Available Encounters Type Date Location Provider Dx Diagnosis Office Visit 07/29/2019 Orthopaedic Office Eligio Hoover, M25.562 Pain in left knee 9:30a DO M25.462 Effusion, left knee Office Visit 07/28/2019 11:30a Surgical Mahnaz Patel, K52.9 Noninfective Office PA gastroenteritis and colitis, unspecified F17.210 Nicotine dependence, cigarettes, uncomplicated Z12.11 Encounter for screening for malignant neoplasm of colon Office Visit 06/21/2019 9:20a Pulmonology Narcisa Phelps J45.20 Mild intermittent PA asthma, uncomplicated F17.210 Nicotine dependence, cigarettes, uncomplicated Z71.6 Tobacco abuse counseling Office Visit 03/08/2019 2:00p Pulmonology Dean Lozano J45.20 Mild intermittent MD asthma, uncomplicated 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 at Operating Room12/16/2019 9:20 am - Juanito Harrison M.D., FACC at Cardiology Mrkitl4410/29/2017 - Margarito Campuzano M.D.Z48.815 Encounter for surgical aftercare following surgery on the digestive system Functional Status Description No Information Available Mental Status Description No Information Available Referrals Refer to Reason for Referral Status Appt Date Abdifatah Nelson MD Evaluate for LT ACL reconstruction Created [address], [address] [facility] [place] [address] [phone] Sabrina Nj MD Pulmonary Artery Aneurysm Closed 04/06/[address] [facility] [address] [place] [address] [phone]
[2019-08-27 21:48] VITALS: BP 112/59
[2019-08-27] MEDS ORDERED: Amoxicillin/Clavulanate TAB* 875 MG PO ONE (22:01)
--- NOTE | 2019-08-27 23:01 | ED ---
Throat Pain/Nasal Congestion - HPI Summary HPI Summary: 34 yo WF c/o B/L ear pains and associated with cough and pleuritic CP, green sputum (still smokes) x 8 days and it is worsening, states pain is deep in the ear and also hurts when pinna and tragus is manipulated in left ear >right - History of Current Complaint Chief Complaint: UCRespiratory Time Seen by Provider: 08/27/19 21:28 Hx Obtained From: Patient Onset/Duration: Lasting Days Severity: Moderate Associated Signs And Symptoms: Positive: Negative Cough: Productive - Allergies/Home Medications Allergies/Adverse Reactions: Allergies Allergy/AdvReac Type Severity Reaction Status Date / Time Adhesive Tape Allergy Rash Verified 08/27/19 21:39 latex Allergy Rash Verified 08/27/19 21:39 SEASONAL Allergy Runny Nose Uncoded 08/27/19 21:39 Home Medications: Home Medications D-Methorphan/PE/Acetaminophen [Vicks Dayquil Liquid] 1 liq PO PRN 08/27/19 [ History] PMH/Surg Hx/FS Hx/Imm Hx Previously Healthy: Yes Endocrine/Hematology History: Reports: Hx Anemia - only during Denies: Hx Diabetes Cardiovascular History: Denies: Hx Hypertension, Hx Pacemaker/ICD Respiratory History: Reports: Hx Asthma GI History: Reports: Hx Gastroesophageal Reflux Disease, Other GI Disorders - luis enrique 2016 History: Reports: Other Problems/Disorders - UTI's x2 yearly Denies: Hx Dialysis, Hx Renal Disease Musculoskeletal History: Reports: Hx Arthritis - Lumbar; Cervical, Hx Back Problems Sensory History: Reports: Hx Contacts or Glasses - GLASSES Denies: Hx Hearing Aid Opthamlomology History: Reports: Hx Contacts or Glasses - GLASSES Neurological History: Reports: Hx Headaches, Hx Migraine, Other Neuro Impairments/Disorders - reports ADHD, PTSD, Bipolar, borderline personality disorder Psychiatric History: Reports: Hx Anxiety, Hx Depression Denies: Hx Panic Disorder - Surgical History Surgery Procedure, Year, and Place: left knee arthroscopies x3, 1998, 1999, 2013 - [place]. teeth extractions. right eye orbital fx repair 2011 - [place]. cholecystectomy 2016 - [place]. left ankle ligament repair - 2016 - [facility] [place]. RIGHT SHOULDER SCOPE 05/03/18. TUBAL LIGATION 08/02/18 Hx Anesthesia Reactions: Yes - PONV Infectious Disease History: Yes Infectious Disease History: Reports: Hx Shingles Denies: Hx Clostridium Difficile, Hx Hepatitis, Hx Human Immunodeficiency Virus (HIV), Hx Tuberculosis, History Other Infectious Disease, Traveled Outside the [place] in Last 30 Days - Family History Known Family History: Positive: Cardiac Disease - Social History Alcohol Use: Occasionally Substance Use Type: Reports: None Smoking Status (MU): Heavy Every Day Tobacco Smoker Type: Cigarettes Amount Used/How Often: 1/2 - 1 PPD for 18 years Length of Time of Smoking/Using Tobacco: 12 YEARS Have You Smoked in the Last Year: Yes Review of Systems Constitutional: Negative Eyes: Negative Positive: Ear Ache Cardiovascular: Negative Positive: Shortness Of Breath, Cough Gastrointestinal: Negative Genitourinary: Negative Musculoskeletal: Negative Skin: Negative Neurological: Negative Psychological: Normal All Other Systems Reviewed And Are Negative: Yes Physical Exam - Summary Physical Exam Summary: Appearance: Positive: No Pain Distress Skin: Positive: Warm Head/Face: Positive: Normal Head/Face Inspection Eyes: Positive: Normal ENT: Positive: B/L TM erythema w/o effusion and TTP with left pinna and tragus manipulation Neck: Positive: Supple Respiratory/Lung Sounds: diffuse rhonchi with cough Cardiovascular: Positive: Normal, RRR, S1, S2 Abdomen : soft, NT/ND Musculoskeletal: Positive: Normal, Strength/ROM Intact Neurological: Positive: CN 2-12 grossly intact Triage Information Reviewed: Yes Vital Signs On Initial Exam: Initial Vitals Temp Pulse Resp BP Pulse Ox 36.7 C 91 20 112/59 99 08/27/19 21:42 08/27/19 21:42 08/27/19 21:42 08/27/19 21:42 08/27/19 21:42 Diagnostics - Vital Signs Vital Signs Temp Pulse Resp BP Pulse Ox 08/27/19 21:42 36.7 C 91 20 112/59 99 - Laboratory Lab Statement: Any lab studies that have been ordered have been reviewed, and results considered in the medical decision making process. EENT Course/Dx - Diagnoses Provider Diagnoses: Otitis media, Otitis externa, Bronchitis Discharge ED - Sign-Out/Discharge Documenting (check all that apply): Patient Departure All imaging exams completed and their final reports reviewed: No Studies - Discharge Plan Condition: Stable Disposition: HOME Prescriptions: Amoxicillin/Clavulanate TAB* [Augmentin TAB 875*] 875 mg PO BID 7 Days #14 tab Ciproflox/Dexameth OTIC.SUSP* [Ciprodex OTIC.SUSP*] 1 drop .SEE ORDER TID 7 Days #1 btl Guaifenesin/Dextromethorphan [Mucinex Dm ER 600-30 mg Tablet] 1 each PO BID 7 Days #14 tab.er.12h Patient Education Materials: Ear Infection (ED), Acute Bronchitis (ED) Referrals: Yuliet Peoples NP [Primary Care Provider] - - Billing Disposition and Condition Condition: STABLE Disposition: Home
== END 2019-08-27 22:40 | disposition home or self-care (01) ==
LOC: UCCORT 20:56
DX: H66.93 Otitis media, unspecified, bilateral (principal); F17.210 Nicotine dependence, cigarettes, uncomplicated; H60.93 Unspecified otitis externa, bilateral; F90.9 Attention-deficit hyperactivity disorder, unspecified type; F31.9 Bipolar disorder, unspecified; J45.909 Unspecified asthma, uncomplicated; Z91.040 Latex allergy status; Z91.09 Other allergy status, other than to drugs and biological substances
CPT/HCPCS: 99212; A9270-GY; G0463

== ENCOUNTER 2019-11-27 17:23 | Emergency (ER) | payer OTHER ==
--- OUTSIDE RECORDS SUMMARY | 2019-11-27 17:30 | XMS REPORT | Continuity of Care Document ---
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 No Information Available Social History Type Date Description Comments Sex Unknown ETOH Use Former Alcohol Use Alcoholic Tobacco Use Start: Unknown Patient is a current smoker, smokes every day Recreational Drug Use Former Drug User Smoking Status Reviewed: 11/10/19 Patient is a current smoker, smokes every [...] chronic pain patient Gabapentin by mouth three 90caps Unknown 400mg Capsules times a day as directed Seroquel 2 [...] mouth every 30tabs Unknown 100mg Tablets night Immunizations Description No Information Available Vital Signs Date Vital Result Comment 11/10/2019 2:10pm BP Systolic 142 mmHg BP Diastolic 86 mmHg Heart Rate 80 /min Respiratory Rate 20 /min Height 64 inches 5'4" Weight 230.00 lb Pain Level 7 Pain at this time. Pain Level With Medicine 6 on average with meds Pain Level Without Medicine 9 without meds BMI (Body Mass Index) 39.5 kg/m2 10/07/2019 12:59pm BP Systolic 128 mmHg BP Diastolic 82 mmHg Heart Rate 80 /min Respiratory Rate 20 /min Height 64 inches 5'4" Weight 219.00 lb Pain Level 5 Pain at this time. Pain Level With Medicine 4 on average with meds Pain Level Without Medicine 9 without meds BMI (Body Mass Index) 37.6 kg/m2 Results Description No Information Available Procedures Date Code Description Status 10/07/2019 02243 Test Autonomic Nervous System, Sudomotor Completed 10/07/2019 17987 Test Autonomic Nervous System, Cardiovagal Innervation Completed 08/08/2019 34708 Therapeutic, Prophylactic Or Diagnostic Injection Subq/Im Completed 07/09/2019 01226 Omt 1-2 Body Regions Completed 07/09/201900598 Arthrocentesis/Aspiration/Inj Of Major Joint Or Bursa W/ Completed Ultra 07/09/2019 Arthrocentesis/Aspiration/Inj Of Major Joint Or Bursa W/ Completed Ultra 06/07/2019 02212 Omt 3-4 Body Regions Completed Medical Devices Description No Information Available Encounters Type Date Location Provider Dx Diagnosis Office Visit 10/07/2019 Main Office as Of Lonny Willingham DO G89.21 Chronic pain due 1:00p 12/24/13 MPH to trauma M54.5 Low back pain M54.2 Cervicalgia M54.16 Radiculopathy, lumbar region 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 G90.3 Multi-system degeneration of the autonomic nervous system Office Visit 09/06/2019 2:30p Main Office as Lonny Willingham G89.21 Chronic pain due Of 12/24/13 , MPH to trauma M54.5 Low back pain M54.2 Cervicalgia M46.1 Sacroiliitis, not elsewhere classified M25.562 Pain in left knee 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 Office Visit 08/08/2019 10:00a Main Office as Lonny Willingham, G89.21 Chronic pain due Of 12/24/13 DO, MPH to trauma M54.5 Low back pain M54.2 Cervicalgia M46.1 Sacroiliitis, not elsewhere classified M25.562 Pain in left knee 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 R53.83 Other fatigue Office Visit 07/07/2019 10:15a Main Office as WillinghamLonny salguero, G89.21 Chronic pain due Of 12/24/13 DO, MPH to trauma M54.5 Low back pain M54.2 Cervicalgia M46.1 Sacroiliitis, not elsewhere classified Z79.891 retirement (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 analgesic Office Visit 06/07/2019 10:30a Main Office as Lonny Willingham, G89.21 Chronic pain due Of 12/24/13 DO, MPH to trauma M54.5 Low back pain M99.03 Segmental and somatic dysfunction of lumbar region M54.2 Cervicalgia M99.01 Segmental and somatic dysfunction of cervical region M54.6 Pain in thoracic spine M99.02 Segmental and somatic dysfunction of thoracic region 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 Assessments Date Code Description Provider 11/10/2019 G89.21 Chronic pain due to trauma Willingham, Lonny, DO, MPH 11/10/2019 M54.5 Low back pain Willingham, Lonny, DO, MPH 11/10/2019 M54.2 Cervicalgia Willingham, Lonny, DO, MPH 11/10/2019 M54.16 Radiculopathy, lumbar region Willingham, Lonny, DO, MPH 11/10/2019 M46.1 Sacroiliitis, not elsewhere classified Willingham, Lonny, DO, MPH 11/10/2019 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 Willingham, Lonny , DO, MPH 10/07/2019 G89.21 Chronic pain due to trauma Willingham, Lonny, DO, MPH 10/07/2019 M54.5 Low back pain Willingham, Lonny, DO, MPH 10/07/2019 M54.2 Cervicalgia Willingham, Lonny, DO, MPH 10/07/2019 M54.16 Radiculopathy, lumbar region Willingham, Lonny, DO, MPH 10/07/2019 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 Willingham, Lonny , DO, MPH 10/07/2019 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, Lonny, DO , MPH nervous system 09/06/2019 G89.21 Chronic pain due to trauma Willingham, Lnony, DO, MPH 09/06/2019 M54.5 Low back pain Willingham, Lonny, DO, MPH 09/06/2019 M54.2 Cervicalgia Willingham, Lonny, DO, MPH 09/06/2019 M46.1 Sacroiliitis, not elsewhere classified Willingham, Lonny, DO, MPH 09/06/2019 M25.562 Pain in left knee Willingham, Lonny, DO, MPH 09/06/2019 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5 Low back pain Willingham, Lonny, DO, MPH 07/09/2019 M99.03 Segmental and somatic dysfunction of lumbar Willingham, Lonny, DO, MPH region 07/09/2019 M46.1 Sacroiliitis, not elsewhere classified Willingham, Lonny, DO, MPH 07/09/2019 M99.04 Segmental and somatic dysfunction of sacral Lonny Willingham DO, MPH region 07/07/2019 G89.21 Chronic pain due to trauma Lonny Willingham DO, MPH 07/07/2019 M54.5 Low back pain Lonny Willingham DO, MPH 07/07/2019 M54.2 Cervicalgia Lonny Willingham DO, MPH 07/07/2019 M46.1 Sacroiliitis, not elsewhere classified Lonny Willingham DO, MPH 07/07/2019 Z79.891 retirement (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 analgesic Lonny Willingham DO, MPH 06/07/2019 G89.21 Chronic pain due to trauma Lonny Willingham DO, MPH 06/07/2019 M54.5 Low back pain Lonny Willingham DO, MPH 06/07/2019 M99.03 Segmental and somatic dysfunction of lumbar Lonny Willingham DO, MPH region 06/07/2019 M54.2 Cervicalgia Lonny Willingham DO, MPH 06/07/2019 M99.01 Segmental and somatic dysfunction of Lonny Willingham DO, MPH cervical region 06/07/2019 M54.6 Pain in thoracic spine Lonny Willingham DO, MPH 06/07/2019 M99.02 Segmental and somatic dysfunction of Lonny Willingham DO, MPH thoracic region 06/07/2019 Z79.891 retirement (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 analgesic Lonny Willingham DO, MPH Plan of Treatment Future Appointment(s):12/09/2019 1:15 pm - Lonny Willingham DO MPH at Main Office as Of 12/24/1411 - Lonny Willingham DO, MPHG89.21 Chronic pain [...] in physical findings. Continue current medical pain management.M54.16 Radiculopathy, lumbar regionComments:Chronic. Symptoms and complaints discussed and reviewed today. No changes in physical findings; patient is stable on current medical therapy.M46.1 Sacroiliitis, not elsewhere classifiedComments:Symptoms and complaints discussed and reviewed today. Continue current medical pain management. Physical findings warrant injection therapy.Z79.891 retirement (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 analgesicNew Labs: Urine Drug Screen, Ordered: 11/10/19Comments:Urine drug screen sample taken. Rapid Point of [...] AMPH, LUIS ANTONIO, AZRA, BUP, CARIS, COCM, ETG, FENT, MCSHSG, OPI, OXY, PCP, TAPEN, [...] considered standard of care.AllComments:Continue current medical pain management ; injection therapy, osteopathic manipulation, PT / modalities, [...] while maintaining satisfactory side effect profile andminimizing termite control service representative end-organ damage. Importance of regular nutrition throughout the day discussed.Activity as toleratedContinue with PCP Functional Status Description No Information Available Mental Status Description No Information Available Referrals Description No Information Available
--- OUTSIDE RECORDS SUMMARY | 2019-11-27 17:30 | XMS REPORT | Continuity of Care Document ---
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 Pain Level With Medicine 4 on average with meds Pain Level Without Medicine 9 without meds BMI (Body Mass Index) 37.6 kg/m2 09/06/2019 2:23pm BP Systolic 136 mmHg BP Diastolic 84 mmHg Heart Rate 82 /min Respiratory Rate 20 /min Height 64 inches 5'4" Weight 219.00 lb Pain Level 5 Pain at this time. Pain Level With Medicine 4 on average with meds Pain Level Without Medicine 9 without meds BMI (Body Mass Index) 37.6 kg/m2 Results Description No Information Available Procedures Date Code Description Status 08/08/2019 61161 Therapeutic, Prophylactic Or Diagnostic Injection Subq/Im Completed 07/09/2019 92868 Omt 1-2 Body Regions Completed 07/09/2019 Arthrocentesis/Aspiration/Inj Of Major Joint Or Bursa W/ Completed Ultra 07/09/2019 Arthrocentesis/Aspiration/Inj Of Major Joint Or Bursa W/ Completed Ultra 06/07/2019 28991 Omt 3-4 Body Regions Completed 05/09/201920323 Injection, Single Or Mutiple Trigger Points One Or Two Completed Muscles 05/09/201906598 Injection, Tendon Origin/Insertion Completed 05/09/201906960 Injection, Tendon Origin/Insertion Completed 05/09/2019 34400 Inject Tendon/Ligament Completed 05/09/2019 89594 Inject Tendon/Ligament Completed 05/09/2019 86033 Inject Tendon/Ligament Completed 05/09/2019 49179 Inject Tendon/Ligament Completed Medical Devices Description No Information Available Encounters Type Date Location Provider Dx Diagnosis Office Visit 09/06/2019 Main Office as Of Lonny Willingham DO G89.21 Chronic pain due 2:30p 12/24/13 MPH to trauma M54.5 Low back pain M54.2 Cervicalgia M46.1 Sacroiliitis, not elsewhere classified M25.562 Pain in left knee Z79.891 jail (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 analgesic Office Visit 08/08/2019 10:00a Main Office as Lonny Willingham G89.21 Chronic pain due Of 12/24/13 DO, MPH to trauma M54.5 Low back pain M54.2 Cervicalgia M46.1 Sacroiliitis, not elsewhere classified M25.562 Pain in left knee Z79.891 jail (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 analgesic R53.83 Other fatigue Office Visit 07/07/2019 10:15a Main Office as Lonny Willingham G89.21 Chronic pain due Of 12/24/13 DO, MPH to trauma M54.5 Low back pain M54.2 Cervicalgia M46.1 Sacroiliitis, not elsewhere classified Z79.891 jail (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 analgesic Office Visit 06/07/2019 10:30a Main Office as Lonny Willingham G89.21 Chronic pain due Of 12/24/13 DO, MPH to trauma M54.5 Low back pain M99.03 Segmental and somatic dysfunction of lumbar region M54.2 Cervicalgia M99.01 Segmental and somatic dysfunction of cervical region M54.6 Pain in thoracic spine M99.02 Segmental and somatic dysfunction of thoracic region 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 Office Visit 05/09/2019 11:00a Main Office as Lonny Willingham G89.21 Chronic pain due Of 12/24/13 DO, MPH to trauma M54.5 Low back pain M54.17 Radiculopathy, lumbosacral region M65.88 Other synovitis and tenosynovitis, other site M79.18 Myalgia, other site 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 Assessments Date Code Description Provider 10/07/2019 G89.21 Chronic pain due to trauma Lonny Willingham DO, MPH 10/07/2019 M54.5 Low back pain Lonny Willingham DO, MPH 10/07/2019 M54.2 Cervicalgia Lonny Willingham DO, MPH 10/07/2019 M54.16 Radiculopathy, lumbar region Lonny Willingham DO, MPH 10/07/2019 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 Lonny Willingham DO, MPH 10/07/2019 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, Lonny, DO , MPH nervous system 09/06/2019 G89.21 Chronic pain due to trauma Willingham, Lonny, DO, MPH 09/06/2019 M54.5 Low back pain Willingham, Lonny, DO, MPH 09/06/2019 M54.2 Cervicalgia Willingham, Lonny, DO, MPH 09/06/2019 M46.1 Sacroiliitis, not elsewhere classified Willingham, Lonny, DO, MPH 09/06/2019 M25.562 Pain in left knee Willingham, Lonny, DO, MPH 09/06/2019 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 Willingham, Lonny , DO, MPH 08/08/2019 G89.21 Chronic pain due to trauma Willingham, Lonny, DO, MPH 08/08/2019 M54.5 Low back pain Willingham, Lonny, DO, MPH 08/08/2019 M54.2 Cervicalgia Willingham, Lonny, DO, MPH 08/08/2019 M46.1 Sacroiliitis, not elsewhere classified Willingham, Lonny, DO, MPH 08/08/2019 M25.562 Pain in left knee Willingham, Lonny, DO, MPH 08/08/2019 Z79.891 jail (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 analgesic Willingham, Lonny [...] Willingham, Lonny, DO, MPH 07/07/2019 M54.2 Cervicalgia WillinghamLonny salguero, DO, MPH 07/07/2019 M46.1 Sacroiliitis, not elsewhere classified WillinghamLonny salguero, DO, MPH 07/07/2019 Z79.891 jail (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 analgesic Willingham, Lonny , DO, MPH 06/07/2019 G89.21 Chronic pain due to trauma WillinghamLonny salguero DO, MPH 06/07/2019 M54.5 Low back pain WillinghamAlfonzo salgueroph, DO, MPH 06/07/2019 M99.03 Segmental and somatic dysfunction of lumbar WillinghamAlfonzo salgueroph, DO, MPH region 06/07/2019 M54.2 Cervicalgia WillinghamAlfonzo salgueroph, DO, MPH 06/07/2019 M99.01 Segmental and somatic dysfunction of WillinghamAlfonzo salgueroph, DO, MPH cervical region 06/07/2019 M54.6 Pain in thoracic spine WillinghamLonny salguero DO, MPH 06/07/2019 M99.02 Segmental and somatic dysfunction of WillinghamLonny salguero, DO, MPH thoracic region 06/07/2019 Z79.891 jail (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 analgesic WillinghamLonny salguero , DO, MPH 05/09/2019 G89.21 Chronic pain due to trauma WillinghamLonny salguero DO, MPH 05/09/2019 M54.5 Low back pain WillinghamLonny salguero DO, MPH 05/09/2019 M54.17 Radiculopathy, lumbosacral region Lonny Willingham DO, MPH 05/09/2019 M65.88 Other synovitis and tenosynovitis, other WillinghamLonny salguero DO , MPH site 05/09/2019 M79.18 Myalgia, other site WillinghamLonny salguero, DO, MPH 05/09/2019 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 Rapid Point of [...] controlled substances and is considered standard of care.G90.3 Multi-system degeneration of the autonomic nervous systemComments: Sudomotor test report reviewed with the patient today. The test was Positive for possible autonomicdysfunction at this time. Will follow effects of pain and current medical treatment. Future testingwill help to monitor the effects of chronic illness, pain and subsequent treatment on the autonomic nervous system. May retest in 3-6 monthsAlpha lipoic acid 100 - 200 mg tid. suggested to patient. This has been shown to help with the neuropathic component of pain and autonomic dysfunction.AllComments:The injections that we are requesting on the behalf of the patient areTendon Sheath Injection () quantity of 4, Tendon Origin Insertion () quantity of 2,Trigger Point Injection () quantity of 2, Bilateral Peripheral Nerve Block (33557) quantity of 2. If she is able to have injections as a secondary option for pain relief, that may be another option other than increases in opioid medications. Please feel free to contact the office with any questions.All above symptoms and complaints discussed as well as diagnoses reviewed.Continue trial of opioid pain management - note changes below; injection therapy, osteopathic manipulation (OMT), PT / modalities, and consults as needed to manage chronic pain.Side effects discussed ; anticipatory guidance given. Patient clearly understands and agrees with all medical treatments and suggestions. All medicines prescribed are adequate and appropriate for this patient's complaint of pain, medical history, physical, and personal goals.Goals of Treatment are to provide adequate and appropriate multidisciplinary medical pain management to increase/ maintain patient's quality of life and functionality while maintaining satisfactory side effect profile and minimizing residential end-organ damage. Activity as toleratedContinue with PCP Functional Status Description No Information Available Mental Status Description No Information Available Referrals Refer to Reason for Referral Status Appt Date Lonny Willingham D.O. MPH Created [address] [place] [address] [address] [place] [address] [phone]
[2019-11-27 17:38] VITALS: BP 133/98
--- NOTE | 2019-11-27 18:08 | UC ---
Shoulder Pain HPI - HPI Summary HPI Summary: 34-year-old woman comes in with chief complaint of left shoulder pain. Started 3 weeks ago when she was boxing with a friend. She felt a sudden crack and pain in her left shoulder joint. Pains been getting worse over time. Movement or palpation makes the pain worse. Sometimes she does feel some tingling down into her left hand. Pain also radiates up to her left neck. No complaint of any weakness. Patient is unable to take nostril anti-inflammatories because she has GERD. She is on chronic oxycodone for chronic back pain. No complaint of any chest pain or shortness of breath. - History of Current Complaint Chief Complaint: UCGeneralIllness Stated Complaint: LEFT SHOULDER PAIN / INJURY Time Seen by Provider: 11/27/19 17:49 Hx Last Menstrual Period: 11/24/19 Pain Intensity: 10 - Allergies/Home Medications Allergies/Adverse Reactions: Allergies Allergy/AdvReac Type Severity Reaction Status Date / Time Adhesive Tape Allergy Rash Verified 11/27/19 17:38 latex Allergy Rash Verified 11/27/19 17:38 SEASONAL Allergy Runny Nose Uncoded 11/27/19 17:38 PMH/Surg Hx/FS Hx/Imm Hx Previously Healthy: Yes - CHRONIC BACK PAIN Respiratory History: Asthma GI/ History: Gastroesophageal Reflux - Surgical History Surgical History: Yes Surgery Procedure, Year, and Place: left knee arthroscopies x3, 1999, 1999, 2013 - [place]. teeth extractions. right eye orbital fx repair 2011 - [place]. cholecystectomy 2017 - [place]. left ankle ligament repair - 2015 - [facility] [place]. RIGHT SHOULDER SCOPE 05/03/18. TUBAL LIGATION 08/02/18 - Family History Known Family History: Positive: Cardiac Disease - Social History Alcohol Use: Occasionally Substance Use Type: None Smoking Status (MU): Heavy Every Day Tobacco Smoker Type: Cigarettes Amount Used/How Often: 1/2 - 1 PPD for 18 years Length of Time of Smoking/Using Tobacco: 12 YEARS Have You Smoked in the Last Year: Yes Household Exposure Type: Cigarettes - Immunization History Most Recent Influenza Vaccination: 07/2017 Vaccination Up to Date: Yes Review of Systems All Other Systems Reviewed And Are Negative: Yes Constitutional: Positive: Negative Skin: Positive: Negative Eyes: Positive: Negative ENT: Positive: Negative Respiratory: Positive: Negative Cardiovascular: Positive: Negative Gastrointestinal: Positive: Negative Motor: Positive: Other - SEE HPI Neurovascular: Positive: Other - SEE HPI Musculoskeletal: Positive: Other: - SEE HPI Neurological: Positive: Other - SEE HPI Psychological: Positive: Negative Is Patient Immunocompromised?: No Physical Exam Triage Information Reviewed: Yes Appearance: Well-Appearing, Well-Nourished, Pain Distress - MILD WITH ROM AND EXAM OF LEFT SHOULDER Vital Signs: Initial Vital Signs Temp 97.7 F 11/27/19 17:34 Pulse 89 11/27/19 17:34 Resp 18 11/27/19 17:34 BP 133/98 11/27/19 17:34 Pulse Ox 96 11/27/19 17:34 Vital Signs Reviewed: Yes Eye Exam: Normal Eyes: Positive: Conjunctiva Clear Neck: Positive: Supple, Other: - Mild tenderness to palpation of the left side of the neck. No tenderness to palpation of the midline posterior of the neck. Respiratory: Positive: Lungs clear, Normal breath sounds, No respiratory distress Cardiovascular: Positive: RRR Musculoskeletal: Positive: Other: - Tender to palpation in the left shoulder joint. There is some tenderness left side of the neck also. Normal radial pulses normal sensation in the arms. Normal capillary refill of the arms. Fingers wrists and elbows have full range of motion full-strength. Left elbow range of motion does increase the pain in the left shoulder. Shoulder extension is 120 on the right 70 on the left. Abduction is 100 on the right 45 on the left. Internal rotation is L4 on the right and unable on the left. Neurological: Positive: Alert, Muscle Tone Normal Psychological: Positive: Age Appropriate Behavior Skin Exam: Normal Shoulder Course/Dx - Course Course Of Treatment: I discussed the x-rays with the patient. I do not see any fracture. Radiologist reading is pending. Patient is unable to take nonsteroidal anti- inflammatories. She is already on oxycodone for chronic pain. I recommended icing the shoulder. Also patient given a sling. We discussed to avoid frozen shoulder she needed to range of motion exercises with the sling off at least 5 or 6 times a day and I demonstrated these exercises to her. I did treat with prednisone 40 mg a day for 5 days and patient is to follow-up with orthopedics or sports medicine. - Differential Dx/Diagnosis Provider Diagnosis: Left shoulder pain Discharge ED - Sign-Out/Discharge Documenting (check all that apply): Patient Departure All imaging exams completed and their final reports reviewed: No - Discharge Plan Condition: Stable Disposition: HOME Prescriptions: predniSONE 20 mg TAB [Deltasone 20 MG TAB*] 40 mg PO DAILY #8 tab Patient Education Materials: Shoulder Pain (ED) Referrals: Yuliet Peoples NP [Primary Care Provider] - Additional Instructions: FOLLOW UP WITH DR SIMPSON, ORTHOPEDICS, OR SPORTS MEDICINE. Final radiologist reading of the x-ray is pending. GET RECHECKED SOONER IF WORSE OR ANY QUESTIONS OR CONCERNS. Ice the shoulder. Use the sling if helpful. To avoid a frozen shoulder take your arm out of the sling multiple times a day at least 5 or 6 times a day and perform the shoulder range of motion exercises we discussed. - Billing Disposition and Condition Condition: STABLE Disposition: Home
--- NOTE | 2019-11-28 07:40 | UC ---
- Progress Note Progress Note: report of shoulder xray, negative per Dr. Hicks, confirming wet read. No change in management based on report. Course/Dx - Diagnoses Provider Diagnoses: Left shoulder pain Discharge ED - Sign-Out/Discharge Documenting (check all that apply): Post-Discharge Follow Up All imaging exams completed and their final reports reviewed: Yes - Discharge Plan Condition: Stable Disposition: HOME Prescriptions: predniSONE 20 mg TAB [Deltasone 20 MG TAB*] 40 mg PO DAILY #8 tab Patient Education Materials: Shoulder Pain (ED) Referrals: Yuliet Peoples NP [Primary Care Provider] - Additional Instructions: FOLLOW UP WITH DR SIMPSON, ORTHOPEDICS, OR SPORTS MEDICINE. Final radiologist reading of the x-ray is pending. GET RECHECKED SOONER IF WORSE OR ANY QUESTIONS OR CONCERNS. Ice the shoulder. Use the sling if helpful. To avoid a frozen shoulder take your arm out of the sling multiple times a day at least 5 or 6 times a day and perform the shoulder range of motion exercises we discussed. - Billing Disposition and Condition Condition: STABLE Disposition: Home
== END 2019-11-27 18:20 | disposition home or self-care (01) ==
LOC: UCCORT 17:23
DX: M25.512 Pain in left shoulder (principal); F17.210 Nicotine dependence, cigarettes, uncomplicated; Z91.09 Other allergy status, other than to drugs and biological substances; Z91.040 Latex allergy status; X58.XXXA Exposure to other specified factors, initial encounter; Y93.71 Activity, boxing; Y92.9 Unspecified place or not applicable
CPT/HCPCS: 99214; G0463; J7512